=== PATIENT | female | born 1950 | race Caucasian/White ===

== ENCOUNTER 2016-06-24 11:07 | Observation (INO) | payer OTHER ==
[2016-06-24 11:14] VITALS: BMI 21.6
--- NOTE | 2016-06-24 11:23 | PDOC ---
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 The patient reports feeling fine waking up today. She reports later this morning suddenly feeling a rapid palpitations , lightheadedness, and a chest pressure that lasted a couple of minutes (less than 15 min). During this episodes she reports alerting EMS. As per EMS the patient had a HR of 208-215 in the upon arrival on scene. EMS reports giving her 4 baby aspirin while in the field. She also has chief complaints of dizziness and a headache and mild left facial tingling that occurred after her palpitation episode. She reports hvaing a juan MRI 2 weeks ago for similar symtoms that she gets intermittently. Pt denies any recent diarrhea, melena, bpr. She denies chest pain. She denies fever and chills She denies nausea, vomit, diarrhea and constipation. She denies dysuria, frequency, urgency and hematuria. Allergies: NKDA Social history: Nonsmoker. CARDIO: Dr. Marion Flynn PCP: (Torin Jacinto) Past History <Torin Jacinto - Last Filed: 06/24/16 12:44> - Past Medical History Cancer: (hx of colon) Cardiac Disorders: Yes (AFIB.) HTN: Yes Hypercholesterolemia: Yes Other medical history: MIGRAINES. - Surgical History Lung Surgery: Yes (lung resection) - Psycho/Social/Smoking Cessation Hx Anxiety: No Suicidal Ideation: No Smoking History: Former smoker Have you smoked in the past 12 months: No Information on smoking cessation initiated: No Hx Alcohol Use: No Drug/Substance Use Hx: No Substance Use Type: None <Mir Rudd - Last Filed: 06/24/16 13:17> - Past Medical History Allergies/Adverse Reactions: Allergies Allergy/AdvReac Type Severity Reaction Status Date / Time pseudoephedrine HCl Allergy Intermediate palpitaiton Verified 06/24/16 11:10 [From Amanda] s Home Medications: Ambulatory Orders Aspirin [ASA -] 81 mg PO DAILY 08/04/14 Atorvastatin Ca [Lipitor] 80 mg PO HS 08/04/14 Divalproex [Depakote -] 250 mg PO BID 08/04/14 Losartan Potassium [Cozaar -] 50 mg PO DAILY #30 tablet 04/15/16 Review of Systems - Review of Systems Able to Perform ROS?: Yes <Torin Jacinto - Last Filed: 06/24/16 12:44> <Mir Rudd - Last Filed: 06/24/16 13:17> - Review of Systems Comments:: 06/24/16 12:09 CONSTITUTIONAL: No reported: Fever, Chills, Diaphoresis, Generalized Weakness, Malaise, Loss of Appetite HEENT: No reported: Rhinorrhea, Nasal Congestion, Throat Pain, Throat Swelling, Difficulty Swallowing, Mouth Swelling, Ear Pain, Eye Pain, Visual Changes CARDIOVASCULAR: Reported: Chest pressure, Syncope, Palpitations, Lightheadedness No reported: Peripheral Edema RESPIRATORY: No reported: Cough, Shortness of Breath, SOB with Exertion, Orthopnea, Wheezing , Stridor, Hemoptysis GASTROINTESTINAL: No reported: Abdominal pain, Abdominal Distension, Nausea, Vomiting, Diarrhea, Constipation, Melena, Hematochezia GENITOURINARY: No reported: Dysuria, Frequency, Urgency, Hesitancy, Flank Pain, Genital Pain MUSCULOSKELETAL: No reported: Myalgia, Arthralgia, Joint Swelling, Back pain, Neck Pain SKIN: No reported: Rash, Itching, Pallor HEMEATOLOGIC/IMMUNOLOGIC: No reported: Easy Bleeding, Easy Bruising, Lymphadenopathy, Frequent infections ENDOCRINE: No reported: Unexplained Weight Gain, Unexplained Weight Loss, Heat Intolerance , Cold Intolerance NEUROLOGIC: Reported: headache. No reported:, Focal Weakness, Paresthesias, Vertigo, Lightheadedness, Unsteady Gait, Seizure, Mental Status Changes, Incontinence PSYCHIATRIC: No reported: Anxiety, Depression (Torin Jacinto) *Physical Exam <Torin Jacinto - Last Filed: 06/24/16 12:44> <Mir Rudd - Last Filed: 06/24/16 13:17> - Vital Signs Last Vital Signs Temp Pulse Resp BP Pulse Ox 98 F 85 15 148/96 99 06/24/16 11:10 06/24/16 13:07 06/24/16 13:07 06/24/16 13:07 06/24/16 13:07 - Physical Exam Comments: 06/24/16 12:09 GENERAL: The patient is awake, alert, and fully oriented, Nontoxic - in no acute distress. HEAD: Normocephalic, atraumatic. EYES: extraocular movements intact, sclera anicteric, conjunctiva clear. ENT: Normal voice, Moist mucous membranes. NECK: Normal range of motion, supple LUNGS: Breath sounds equal, clear to auscultation bilaterally. No wheezes, no rhonchi, no rales. HEART: slightly tachcyardic, regular, no m/r/g ABDOMEN: Soft, nontender, normoactive bowel sounds. No guarding, no rebound.No CVA tenderness EXTREMITIES: Normal range of motion, no edema. No clubbing or cyanosis. No cords , erythema, or tenderness. NEUROLOGICAL: No facial asymmetry, Normal speech. PSYCH: Normal mood, normal affect. SKIN: Warm, Dry, normal turgor. (Torin Jacinto) Heart Score/ECG Review <Torin Jacinto - Last Filed: 06/24/16 12:44> <Mir Rudd - Last Filed: 06/24/16 13:17> - ECG Impressions Comment:: 06/24/16 13:16 Twelve-lead EKG was performed and reviewed by me. There is normal sinus rhythm with a rate of 110 There is normal R wave progression ST depressions - suspect secondary to demand ischemia (Mir Rudd) ED Treatment Course - LABORATORY CBC & Chemistry Diagram: 06/24/16 11:18 06/24/16 11:18 <Torin Jacinto - Last Filed: 06/24/16 12:44> - LABORATORY CBC & Chemistry Diagram: 06/24/16 11:18 06/24/16 11:18 <Mir Rudd - Last Filed: 06/24/16 13:17> - ADDITIONAL ORDERS Additional order review: Laboratory Results 06/24/16 06/24/16 06/24/16 11:18 11:18 11:18 INR 0.93 Sodium 142 Potassium 3.8 Chloride 106 Carbon Dioxide 23 Anion Gap 13 BUN 19 H Creatinine 0.8 Creat Clearance w eGFR > 60 Random Glucose 92 Calcium 9.0 Magnesium 1.8 Total Bilirubin 0.3 D AST 19 D ALT 33 Alkaline Phosphatase 93 Creatine Kinase 64 Troponin I < 0.02 Total Protein 7.6 Albumin 4.0 TSH 3.35 D Blood Type O POSITIVE Antibody Screen Negative 06/24/16 11:18 RBC 5.25 H MCV 79.9 L MCHC 32.4 RDW 15.2 MPV 8.7 Neutrophils % 31.2 L Lymphocytes % 52.6 H Monocytes % 13.8 H Eosinophils % 2.0 Basophils % 0.4 - RADIOLOGY Radiology Studies Ordered: Category Date Time Status HEAD CT WITHOUT CONTRAST [CT] Stat CT Scan 06/24/16 11:18 Completed CHEST X-RAY PORTABLE* [RAD] Stat Radiology 06/24/16 11:18 Completed Radiograph Interpretation: 06/24/16 12:[address] W/O CONTRAST impressions reported by : No evidence of acute intracranial hemorrhage, edema, midline shift, mass effect , or skull fracture. No CT evidence of acute territorial infarction. 06/24/16 12:19 CHEST X-RAY impressions reported by : Shallow inspiration. Soft tissues of the chest projecting over the left lower lung zone. Pulmonary consolidation is noted in the left lower lung zone obscuring the left heart border. Clinical correlation. PA view recommended. (Torin Jacinto) Medical Decision Making <Torin Jacinto - Last Filed: 06/24/16 12:44> <Mir Rudd - Last Filed: 06/24/16 13:17> - Medical Decision Making 06/24/16 12:[address]Tina Sanford awaiting call back. Call made to Dr.Sara Flynn, case discussed. 06/24/16 12:[address]Tina Sanford, awaiting call back. 06/24/16 12:[address]Tina Sanford, case discussed. (Torin Jacinto) 06/24/16 11:23 66 y of colon ca, ?afib (on dilt but not on blood thinners), htn, hl, migraine headaches presents with sudden onset of palpitations starting while she was cleaning associated with mild cp, was noted to be in the 200s by EMS, when she was being trasnported, it appeared to have broken spontaneously. suspect SVT based on appearance of rythmi strip NSR, ST depressions on ekg, suspect due to demand pt placed oncardiac monitor labs sent will r/o anemia, acs, thyroid dysfunction will continue to momitior and will d/w dr. Styles and PMD anticipate admission/obs for monitoring A portion of this note was documented by scribe services under my direction. I have reviewed the details of the note, within reason, and agree with the documentation with the following case summary and management plan written by me 06/24/16 12:25 labs reviewed - unremarkable will admit for furether managment ct head negative will also notify dr. lu 06/24/16 12:46 case d/w dr. alves and dr. lu agreed with admission will place in telemetry for observation Case discussed in detail with admitting physician including history, physical exam and ancillary studies. Admitting physician has assumed care for the patient, will follow all pending diagnostics and will complete the evaluation and treatment. (Mir Rudd) *DC/Admit/Observation/Transfer <Torin Jacinto - Last Filed: 06/24/16 12:44> - Discharge Dispostion Admit: Yes <Mir Rudd - Last Filed: 06/24/16 13:17> Diagnosis at time of Disposition: Tachycardia, SVT (supraventricular tachycardia) - Discharge Dispostion Decision to Admit order Date/Time: Decision to Admit Order Category Date Time Status Decision to Admit to Hospital Routine Phy Order 06/24/16 12:49 Ordered - Referrals Referrals: Enrique Landers MD [Primary Care Provider] - - Attestations Scribe Attestion: 06/24/16 12:09 Documentation prepared by Torin Jacinto, acting as medical records coder for Mir Rudd MD. (Torin Jacinto)
[2016-06-24 11:48] LABS: BASOPHIL 0.4 % (0-2.0); MCH 25.9 pg (25.7-33.7); MCHC 32.4 g/dl (32.0-36.0); MEAN CELL VOLUME 79.9 fl (80-96); MEAN PLT VOLUME 8.7 fl (7.5-11.1); NEUTROPHILS 31.2 % (42.8-82.8); PLATELET COUNT 213 K/MM3 (134-434); RDW 15.2 % (11.6-15.6); WHITE BLOOD COUNT 6.4 K/mm3 (4.0-10.0)
[2016-06-24 12:08] LABS: INR 0.93 (0.82-1.09); PROTHROMBIN TIME (PATIENT) 10.2 SEC (9.98-11.88)
[2016-06-24 12:09] LABS: ANION GAP 13 (8-16); BILIRUBIN,TOTAL 0.3 mg/dL (0.2-1.0); CO2 23 mmol/L (21-32); CREATININE 0.8 mg/dL (0.55-1.02); GLUCOSE,RANDOM 92 mg/dL (74-106); MAGNESIUM 1.8 mg/dL (1.8-2.4); SGOT/AST 19 U/L (15-37); SGPT/ALT 33 U/L (12-78); TOT PROT 7.6 g/dl (6.4-8.2)
[2016-06-24 12:17] LABS: ALK PHOS 93 U/L (45-117); THYROID STIMULATING HORMONE 3.35 uIU/ml (0.358-3.74); TROPONIN I < 0.02 ng/ml (0.00-0.05)
--- NOTE | 2016-06-24 13:58 | HP ---
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 The patient reports feeling fine waking up today. She reports later this morning suddenly feeling a rapid palpitations , lightheadedness, and a chest pressure that lasted a couple of minutes (less than 15 min). During this episodes she reports alerting EMS. As per EMS the patient had a HR of 208-215 in the upon arrival on scene. EMS reports giving her 4 baby aspirin while in the field. She also has chief complaints of dizziness and a headache and mild left facial tingling that occurred after her palpitation episode. She reports having a brain MRI 2 weeks ago for similar symptoms that she gets intermittently. Pt denies any recent diarrhea, melena, bpr. She denies chest pain. She denies fever and chills She denies nausea, vomit, diarrhea and constipation. She denies dysuria, frequency, urgency and hematuria. PT seen by me in ER Known to me from previous admissions. Pt was found to be in SVT but converted to sinus on her own Currently denies SOB, chest pain , palpitations and dizziness. Episode of palpitations lasted till EMS arrived and was given ASA only. History Source: Patient Limitations to Obtaining History: No Limitations - Past Medical History Cardiovascular: Yes: HTN, Hyperlipdemia Gastrointestinal: Yes: Other (Lung AV malformation with lobectomy LLL, right thrombectomy and coil) Endocrine: Yes: Hypothyroidism - Smoking History Smoking history: Former smoker Have you smoked in the past 12 months: No - Alcohol/Substance Use Hx Alcohol Use: No Home Medications - Allergies Allergies/Adverse Reactions: Allergies Allergy/AdvReac Type Severity Reaction Status Date / Time pseudoephedrine HCl Allergy Intermediate palpitaiton Verified 06/24/16 11:10 [From Amanda] s - Home Medications Home Medications: Ambulatory Orders RX: Aspirin [ASA -] 81 mg PO DAILY 08/04/14 RX: Atorvastatin Ca [Lipitor] 80 mg PO HS 08/04/14 RX: Divalproex [Depakote -] 250 mg PO BID 08/04/14 RX: Losartan Potassium [Cozaar -] 50 mg PO DAILY #30 tablet 04/15/16 Calcium Carbonate/Vitamin D3 [Calcium 600-Vit D3 400 Tablet] 1 each PO DAILY 09/05 Cyanocobalamin (Vitamin B-12) [Vitamin B12] 2,500 mcg PO DAILY 06/24/16 Diltiazem Cd [Cardizem Cd -] 240 mg PO DAILY 06/24/16 Levothyroxine [Synthroid -] 25 mcg PO DAILY 06/24/16 Review of Systems - Review of Systems Constitutional: denies: Chills, Fever, Loss of Appetite, Weakness Cardiovascular: denies: Chest Pain, Palpitations Respiratory: denies: Cough, SOB Genitourinary: denies: Burning, Dysuria, Flank Pain, Frequency Physical Examination Vital Signs: Vital Signs Temperature 98 F 06/24/16 11:10 Pulse Rate 85 06/24/16 13:07 Respiratory Rate 15 06/24/16 13:07 Blood Pressure 148/96 06/24/16 13:07 O2 Sat by Pulse Oximetry (%) 99 06/24/16 13:07 Constitutional: Yes: No Distress, Calm Cardiovascular: Yes: Regular Rate and Rhythm Respiratory: Yes: CTA Bilaterally Gastrointestinal: Yes: Normal Bowel Sounds, Soft. No: Distention, Tenderness Edema: No Neurological: Yes: WNL ...Motor Strength: WNL Psychiatric: Yes: Alert, Oriented Labs: Laboratory Last Values WBC 6.4 K/mm3 (4.0-10.0) D 06/24/16 11:18 RBC 5.25 M/mm3 (3.60-5.2) H 06/24/16 11:18 Hgb 13.6 GM/dL (10.7-15.3) 06/24/16 11:18 Hct 41.9 % (32.4-45.2) 06/24/16 11:18 MCV 79.9 fl (80-96) L 06/24/16 11:18 MCHC 32.4 g/dl (32.0-36.0) 06/24/16 11:18 RDW 15.2 % (11.6-15.6) 06/24/16 11:18 Plt Count 213 K/MM3 (134-434) 06/24/16 11:18 MPV 8.7 fl (7.5-11.1) 06/24/16 11:18 Neutrophils % 31.2 % (42.8-82.8) L 06/24/16 11:18 Lymphocytes % 52.6 % (8-40) H 06/24/16 11:18 Monocytes % 13.8 % (3.8-10.2) H 06/24/16 11:18 Eosinophils % 2.0 % (0-4.5) 06/24/16 11:18 Basophils % 0.4 % (0-2.0) 06/24/16 11:18 INR 0.93 (0.82-1.09) 06/24/16 11:18 Sodium 142 mmol/L (136-145) 06/24/16 11:18 Potassium 3.8 mmol/L (3.5-5.1) 06/24/16 11:18 Chloride 106 mmol/L (98-107) 06/24/16 11:18 Carbon Dioxide 23 mmol/L (21-32) 06/24/16 11:18 Anion Gap 13 (8-16) 06/24/16 11:18 BUN 19 mg/dL (7-18) H 06/24/16 11:18 Creatinine 0.8 mg/dL (0.55-1.02) 06/24/16 11:18 Creat Clearance w eGFR > 60 (>60) 06/24/16 11:18 Random Glucose 92 mg/dL (74-106) 06/24/16 11:18 Calcium 9.0 mg/dL (8.5-10.1) 06/24/16 11:18 Magnesium 1.8 mg/dL (1.8-2.4) 06/24/16 11:18 Total Bilirubin 0.3 mg/dL (0.2-1.0) D 06/24/16 11:18 AST 19 U/L (15-37) D 06/24/16 11:18 ALT 33 U/L (12-78) 06/24/16 11:18 Alkaline Phosphatase 93 U/L (45-117) 06/24/16 11:18 Creatine Kinase 64 IU/L (26-192) 06/24/16 11:18 Troponin I < 0.02 ng/ml (0.00-0.05) 06/24/16 11:18 Total Protein 7.6 g/dl (6.4-8.2) 06/24/16 11:18 Albumin 4.0 g/dl (3.4-5.0) 06/24/16 11:18 TSH 3.35 uIU/ml (0.358-3.74) D 06/24/16 11:18 Urine Color Colorless 06/24/16 13:40 Urine Appearance Clear 06/24/16 13:40 Urine pH 8.0 (5.0-8.0) D 06/24/16 13:40 Ur Specific [place] 1.004 (1.001-1.035) 06/24/16 13:40 Urine Protein Negative (NEGATIVE) 06/24/16 13:40 Urine Glucose (UA) Negative (NEGATIVE) 06/24/16 13:40 Urine Ketones Negative (NEGATIVE) 06/24/16 13:40 Urine Blood Negative (NEGATIVE) 06/24/16 13:40 Urine Nitrite Negative (NEGATIVE) 06/24/16 13:40 Urine Bilirubin Negative (NEGATIVE) 06/24/16 13:40 Urine Urobilinogen Negative E.U./dl (0.2-1.0) 06/24/16 13:40 Ur Leukocyte Esterase Negative (NEGATIVE) 06/24/16 13:40 Blood Type O POSITIVE 06/24/16 11:18 Antibody Screen Negative 06/24/16 11:18 Imaging - Results Chest X-ray: Image Reviewed (left lower lobe obscured) EKG: Image Reviewed Problem List - Problems (1) SVT (supraventricular tachycardia) Code(s): I47.1 - SUPRAVENTRICULAR TACHYCARDIA (2) Tachycardia Code(s): R00.0 - TACHYCARDIA, UNSPECIFIED (3) Chest pain Code(s): R07.9 - CHEST PAIN, UNSPECIFIED Qualifiers: Chest pain type: precordial chest pain Qualified Code(s): R07.2 - Precordial pain Assessment/Plan PLAN Admit for telemetry monitoring check Thyroid function test Cardiology shivam currently has left sided facial numbness and pain in left arm-- she had this before-- MRI brain negative and today's CT head negative pt is afebrile, O2 sat 99-100% on RA -- CXR does not appear like pneumonia, prob from previous h/o left lobectomy UA normal check electrolytes continue with Diltiazem , ASA serial cardiac enzymes Echo in AM
[2016-06-24 14:04] LABS: URINE APPEARANCE CLEAR; URINE BILIRUBIN NEGATIVE (NEGATIVE); URINE BLOOD NEGATIVE (NEGATIVE); URINE COLOR COLORLESS; URINE GLUCOSE (UA) NEGATIVE (NEGATIVE); URINE KETONE NEGATIVE (NEGATIVE); URINE LEUK ESTERASE NEGATIVE (NEGATIVE); URINE NITRITE NEGATIVE (NEGATIVE); URINE PROTEIN NEGATIVE (NEGATIVE); URINE UROBILINOGEN NEGATIVE E.U./dl (0.2-1.0)
--- NOTE | 2016-06-24 15:32 | CONSULT ---
Cardiology Consult (text) - Consultation Consultation Note: CC: palps/SVT 65 yrs with h/o HTN, Hyperlipdemia, hypothyroid, osler-calderon with lung AV malformations s/p resection on left and coil embolization on right. Also with unknown arryhthmias about 20 years ago who presents with palpitations and found to have SVT by EMS. Patient states she felt unwell this morning with headache (has chronic migraines and intermittent paresthesias, recent MRI unremarkable, but MRA still not done-has insurance approval, but not scheduled). Subsequently developed palpitations radiating into her throat with associated sob, chest pressure. Had similar symptoms one month ago, but not as severe and self-limited. Symptoms persisted and called ems. Per report, HR was 200's. Converted to SR on her own. Strips not available, but picture was taken of monitor which I was able to see and consistent with SVT. No orthopnea, pnd, le edema, claudication or bleeding. No recent illness, f/c/s, n/v/d, poor po intake, rashes, visual disturbances. + chronic intermittent dry cough. Past Medical History/surg hx: per hpi. Social hx: former smoker in her 20's, one beer/day, no illicits. fam hx: nc ros: per hpi Allergies/Adverse Reactions: Allergies Allergy/AdvReac Type Severity Reaction Status Date / Time No Known Allergies Allergy Verified 04/14/16 13:48 Ambulatory Orders Aspirin [ASA -] 81 mg PO DAILY 08/04/14 Atorvastatin Ca [Lipitor] 80 mg PO HS 08/04/14 Divalproex [Depakote -] 250 mg PO BID 08/04/14 Losartan Potassium [Cozaar -] 50 mg PO DAILY #30 tablet 04/15/16 Calcium Carbonate/Vitamin D3 [Calcium 600-Vit D3 400 Tablet] 1 each PO DAILY 09/05 Cyanocobalamin (Vitamin B-12) [Vitamin B12] 2,500 mcg PO DAILY 06/24/16 Diltiazem Cd [Cardizem Cd -] 240 mg PO DAILY 06/24/16 Levothyroxine [Synthroid -] 25 mcg PO DAILY 06/24/16 Current Medications Aspirin (Asa -) 81 mg PO DAILY [facility] Atorvastatin Calcium (Lipitor -) 80 mg PO HS [facility] Diltiazem HCl (Cardizem Cd -) 240 mg PO DAILY [facility] Divalproex Sodium (Depakote -) 250 mg PO BID [facility] Levothyroxine Sodium (Synthroid -) 25 mcg PO DAILY@0700 [facility] Losartan Potassium (Cozaar -) 50 mg PO DAILY [facility] Vital Signs - 24 hr 06/24/16 06/24/16 06/24/16 11:10 12:57 13:07 Temperature 98 F Pulse Rate 106 H 85 Pulse Rate [ 85 85 Left] Respiratory 22 16 15 Rate Blood Pressure 165/111 Blood Pressure 148/96 148/96 [Arm] O2 Sat by Pulse 100 99 99 Oximetry (%) Intake & Output 06/22/16 06/23/16 06/24/16 06/25/16 07:59 07:59 07:59 07:59 Weight 130 lb NAD, calm JVD flat, neck supple bibasilar rales, nl effort RRR nl s1, s2 no m/r/g + bs soft nt nd ext without e/c/c + dp/pt aao x3 no jaundice, diaphoresis no carotid bruits. CBC, BMP 06/24/16 11:18 06/24/16 11:18 Laboratory Tests 06/24/16 06/24/16 11:18 11:18 INR 0.93 Magnesium 1.8 Total Bilirubin 0.3 D AST 19 D ALT 33 Alkaline Phosphatase 93 Creatine Kinase 64 Troponin I < 0.02 Total Protein 7.6 Albumin 4.0 TSH 3.35 D EKG: Sinus tachycardia, 110 bpm. Nl asxis/intervals. minimal STD V3-V5. tele: Sinus tach, SR CXR: vascular coils in R suprahilar region, pulmonary consolidation in LLL obscuring left heart border. head CT negative for acute pathology. stress echo 03/2016: 1 min 38 sec. 104% PHR. Non-diagnostic EKG changes. Nl Ef. No inducible ischemia. 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 Also with unknown arryhthmias about 20 years ago who presents with palpitations and found to have SVT by EMS. Palps/CP/EKG ab - Likely episode of SVT with spontaneous conversion. Con't telemetry monitoring. - Echo to evaluate for structural abnormalities. - CXR shows obscuring of left heart border . Infiltrate vs. hemorrhage from AVM ?, patient also at risk for thromboembolism. Would further evaluate with Chest CT (PE protocol). BNP. - EKG with STD. Con't MILO. Recent stress test negative for ischemia in March. HTN - Currently controlled on home regimen. Con't dilt, losartan. - Con't ASA HL - con't atorvastatin. Migraine/paresthesias. - May be related to osler calderon rendu. Had plan for brain MRA to look for brain AV malformations, but difficulty getting insurance approval. If telemetry shows any signs of afib, would recommend brain MRA prior to anticoagulation
[2016-06-24] MEDS ORDERED: ATORVASTATIN CA 80 MG TABLET (FP) PO SCH (22:00)
[2016-06-24] MEDS: DIVALPROEX SODIUM 250 MG TABLET E.C. (FP) PO SCH (23:26)
[2016-06-25] MEDS ORDERED: LEVOTHYROXINE NA 25 MCG TABLET (FP) PO SCH (07:00)
[2016-06-25 08:19] LABS: BASOPHIL 0.4 % (0-2.0); EOSINOPHIL 1.4 % (0-4.5); MCH 26.2 pg (25.7-33.7); MCHC 32.6 g/dl (32.0-36.0); MEAN CELL VOLUME 80.4 fl (80-96); MEAN PLT VOLUME 8.9 fl (7.5-11.1); NEUTROPHILS 47.9 % (42.8-82.8); PLATELET COUNT 200 K/MM3 (134-434); RDW 15.3 % (11.6-15.6); WHITE BLOOD COUNT 6.1 K/mm3 (4.0-10.0)
[2016-06-25 09:02] LABS: ALBUMIN 3.5 g/dl (3.4-5.0); ALK PHOS 81 U/L (45-117); ANION GAP 10 (8-16); BILIRUBIN,TOTAL 0.3 mg/dL (0.2-1.0); CALCIUM 8.6 mg/dL (8.5-10.1); CO2 25 mmol/L (21-32); CREATININE 0.7 mg/dL (0.55-1.02); FREE T4 1.14 ng/dl (0.76-1.46); GLUCOSE,RANDOM 75 mg/dL (74-106); MAGNESIUM 1.9 mg/dL (1.8-2.4); SGOT/AST 19 U/L (15-37); SGPT/ALT 27 U/L (12-78); THYROID STIMULATING HORMONE 1.82 uIU/ml (0.358-3.74); TOT PROT 6.6 g/dl (6.4-8.2)
--- NOTE | 2016-06-25 09:56 | PN ---
Progress Note, Physician Chief Complaint: no further palpitations no chest pain or dizziness - Current Medication List Current Medications: Active Medications Aspirin (Asa -) 81 mg PO DAILY [facility] Atorvastatin Calcium (Lipitor -) 80 mg PO HS [facility] Last Admin: 06/24/16 23:25 Dose: 80 mg Diltiazem HCl (Cardizem Cd -) 240 mg PO DAILY [facility] Divalproex Sodium (Depakote -) 250 mg PO BID [facility] Last Admin: 06/24/16 23:26 Dose: 250 mg Levothyroxine Sodium (Synthroid -) 25 mcg PO DAILY@0700 [facility] Last Admin: 06/25/16 06:06 Dose: 25 mcg Losartan Potassium (Cozaar -) 50 mg PO DAILY [facility] - Objective Vital Signs: Vital Signs Temperature 97.9 F 06/25/16 06:00 Pulse Rate 73 06/25/16 06:00 Respiratory Rate 18 06/25/16 06:00 Blood Pressure 148/86 06/25/16 06:00 O2 Sat by Pulse Oximetry (%) 97 06/24/16 22:33 Constitutional: Yes: No Distress, Calm Cardiovascular: Yes: Regular Rate and Rhythm Respiratory: Yes: CTA Bilaterally Gastrointestinal: Yes: Normal Bowel Sounds, Soft. No: Distention, Tenderness Edema: No Labs: CBC, BMP 06/25/16 06:00 06/25/16 06:00 INR, PTT INR 0.93 (0.82-1.09) 06/24/16 11:18 Problem List - Problems (1) SVT (supraventricular tachycardia) Code(s): I47.1 - SUPRAVENTRICULAR TACHYCARDIA (2) Tachycardia Code(s): R00.0 - TACHYCARDIA, UNSPECIFIED (3) Chest pain Code(s): R07.9 - CHEST PAIN, UNSPECIFIED Qualifiers: Chest pain type: precordial chest pain Qualified Code(s): R07.2 - Precordial pain Assessment/Plan PLAN Thyroid function test normal Cardiology shivam givens currently has left sided facial numbness and pain in left arm-- she had this before-- MRI brain negative and today's CT head negative pt is afebrile, O2 sat 99-100% on RA -- CXR does not appear like pneumonia, prob from previous h/o left lobectomy UA normal Echo pending CT chest same as 2010 continue with Diltiazem , ASA serial cardiac enzymes
[2016-06-25] MEDS ORDERED: PT OWN MED DRAWER 7, Y5N ONE (10:00)
[2016-06-25] MEDS ORDERED: ASPIRIN 81 MG CHEWABLE TABLETS PO SCH (10:00)
[2016-06-25] MEDS ORDERED: LOSARTAN POTASSIUM 50 MG TABLET (FP) PO SCH (10:00)
[2016-06-25] MEDS ORDERED: ENOXAPARIN NA (PORCINE) 40 MG/0.4 ML DISP.SYRIN SQ SCH (10:00)
--- NOTE | 2016-06-25 11:04 | EKG ---
Test Reason : Blood Pressure : / mmHG Vent. Rate : 110 BPM Atrial Rate : 110 BPM P-R Int : 166 ms QRS Dur : 072 ms QT Int : 314 ms P-R-T Axes : 049 -08 019 degrees QTc Int : [address] DEPRESSION, CONSIDER SUBENDOCARDIAL INJURY OR DIGITALIS EFFECT ABNORMAL ECG WHEN COMPARED WITH ECG OF 14-APR-2016 19:35, CRITERIA FOR SEPTAL INFARCT ARE NO LONGER PRESENT ST NOW DEPRESSED IN INFERIOR LEADS ST NOW DEPRESSED IN ANTERIOR LEADS NONSPECIFIC T WAVE ABNORMALITY, WORSE IN INFERIOR LEADS Confirmed by MARCELLUS DE LUNA, YAA ([id number]) on 06/25/2016 11:04:23 AM Referred By: Confirmed By:YAA GERMAIN MD
[2016-06-25] MEDS: DIVALPROEX SODIUM 250 MG TABLET E.C. (FP) PO SCH (11:37)
--- NOTE | 2016-06-25 11:49 | PN ---
Progress Note (short form) - Note Progress Note: s: no cp sob palps dizzy o: Vital Signs Period Temp Pulse Resp BP Sys/Alex Pulse Ox Last 24 Hr 97.5 F-98.1 F 66-85 15-18 134-155/79-96 97-99 NAD, calm JVD flat, neck supple cta bl, nl effort RRR nl s1, s2 no m/r/g + bs soft nt nd ext without e/c/c aao x3 no jaundice, diaphoresis Current Medications Generic Name Dose Route Start Last Admin Trade Name Mattiq PRN Reason Stop Dose Admin Aspirin 81 mg 06/25/16 10:00 06/25/16 10:01 Asa - PO 81 mg DAILY CARLA Administration Atorvastatin Calcium 80 mg 06/24/16 22:00 06/24/16 23:25 Lipitor - PO 80 mg HS CARLA Administration Diltiazem HCl 240 mg 06/25/16 10:00 06/25/16 10:01 Cardizem Cd - PO 240 mg DAILY CARLA Administration Divalproex Sodium 250 mg 06/24/16 22:00 06/25/16 11:37 Depakote - PO 250 mg BID CARLA Administration Levothyroxine Sodium 25 mcg 06/25/16 07:00 06/25/16 06:06 Synthroid - PO 25 mcg DAILY@0700 CARLA Administration Losartan Potassium 50 mg 06/25/16 10:00 06/25/16 10:01 Cozaar - PO 50 mg DAILY CARLA Administration CBC, BMP 06/25/16 06:00 06/25/16 06:00 EKG: Sinus tachycardia, 110 bpm. Nl asxis/intervals. minimal STD V3-V5. tele: SR, no svt CXR: vascular coils in R suprahilar region, pulmonary consolidation in LLL obscuring left heart border. head CT negative for acute pathology. stress echo 03/2016: 1 min 38 sec. 104% PHR. Non-diagnostic EKG changes. Nl Ef. No inducible ischemia. 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 Also with unknown arryhthmias about 20 years ago who presents with palpitations and found to have SVT by EMS. Palps/CP/EKG ab - Likely episode of SVT with spontaneous conversion had caused her symptoms, no recurrence on tele here - Echo pending to evaluate for structural abnormalities. - cta chest w/o any acute findings - no signs acs - cont dilt for svt prevention HTN - Currently controlled on home regimen. Con't dilt, losartan. - Con't ASA HL - con't atorvastatin. Migraine/paresthesias. - May be related to osler calderon rendu. Had plan for brain MRA to look for brain AV malformations, but difficulty getting insurance approval. If telemetry shows any signs of afib, would recommend brain MRA prior to anticoagulation if echo benign then ok for dc today from cardiac pov, will f/u with dr wallace
[2016-06-25 13:47] VITALS: BP 128/89; PULSE 73; TEMP 97.7
--- NOTE | 2016-06-25 13:48 | DS ---
Physical Examination Vital Signs: Vital Signs Temperature 97.5 F L 06/25/16 10:00 Pulse Rate 66 06/25/16 10:00 Respiratory Rate 18 06/25/16 10:00 Blood Pressure 136/84 06/25/16 10:00 O2 Sat by Pulse Oximetry (%) 97 06/25/16 09:00 Constitutional: Yes: No Distress, Calm Cardiovascular: Yes: Regular Rate and Rhythm Respiratory: Yes: CTA Bilaterally Gastrointestinal: Yes: Normal Bowel Sounds, Soft. No: Distention, Tenderness Edema: No Labs: CBC, BMP 06/25/16 06:00 06/25/16 06:00 Discharge Summary Reason For Visit: TACHYCARDIA,SVT Current Active Problems SVT (supraventricular tachycardia) (Acute) Tachycardia (Acute) Hospital Course: Admitted for SVT Seen by Cardiology Feeling well echo normal and CT chest is negative- same as 2010 Pt is stable for dc home Condition: Improved - Instructions Referrals: Marion Flynn MD [Staff Physician] - 2 Weeks Enrique Landers MD [Primary Care Provider] - Disposition: HOME - Home Medications Comprehensive Discharge Medication List: Ambulatory Orders Aspirin [ASA -] 81 mg PO DAILY 08/04/14 Atorvastatin Ca [Lipitor] 80 mg PO HS 08/04/14 Divalproex [Depakote -] 250 mg PO BID 08/04/14 Losartan Potassium [Cozaar -] 50 mg PO DAILY #30 tablet 04/15/16 Calcium Carbonate/Vitamin D3 [Calcium 600-Vit D3 400 Tablet] 1 each PO DAILY 09/05 Cyanocobalamin (Vitamin B-12) [Vitamin B12] 2,500 mcg PO DAILY 06/24/16 Diltiazem Cd [Cardizem Cd -] 240 mg PO DAILY 06/24/16 Levothyroxine [Synthroid -] 25 mcg PO DAILY 06/24/16
== END 2016-06-25 15:29 | disposition home or self-care (01) ==
LOC: JER 11:07 → JERBED 12:59 → J4S 21:13
PROVIDERS: ADMIT Internal Medicine; ATTEND Internal Medicine
DX: I47.1 Supraventricular tachycardia (principal); I10 Essential (primary) hypertension; E03.9 Hypothyroidism, unspecified; I48.91 Unspecified atrial fibrillation; Z87.891 Personal history of nicotine dependence; G43.909 Migraine, unspecified, not intractable, without status migrainosus; R20.9 Unspecified disturbances of skin sensation
CPT/HCPCS: 36415; 70450-TC; 71010-TC; 71260-TC; 80053; 81003; 82550; 83735; 84439; 84443; 84484; 85025; 85610; 86850; 86900; 86901; 93005; 93010; 93306-TC; 99285-25; G0378

== ENCOUNTER 2017-09-03 10:58 | Emergency (ER) | payer OTHER ==
[2017-09-03 11:02] VITALS: BP 163/69; PULSE 74; TEMP 97.9; BMI 24.9
[2017-09-03] MEDS ORDERED: IBUPROFEN 400 MG TABLET (FP) PO ONE ×2 (12:10→12:13)
[2017-09-03] MEDS ORDERED: DIPHTH,PERTUSS(ACELL),TET 0.5 ML DISP.SYRIN IM ONE (12:10)
--- NOTE | 2017-09-03 12:15 | PDOC ---
History of Present Illness - General Chief Complaint: Injury Stated Complaint: RT FINGER LACERATION Time Seen by Provider: 09/03/17 11:36 History Source: Patient Exam Limitations: No Limitations - History of Present Illness Initial Comments: 09/03/17 12:10 Was washing glasses in this incident today when glass broke causing a laceration to the MCP of right second digit. Range of motion, states bled quite a bit but patient is taking baby aspirin daily Occurred: reports: just prior to arrival, this morning Severity: reports: mild, moderate Pain Location: reports: upper extremity (right index finger) Associated Symptoms (Fall): denies symptoms Past History - Travel Traveled outside of the country in the last 30 days: No Close contact w/someone who was outside of country & ill: No - Past Medical History Allergies/Adverse Reactions: Allergies Allergy/AdvReac Type Severity Reaction Status Date / Time pseudoephedrine HCl Allergy Intermediate palpitaiton Verified 09/03/17 11:02 [From [facility]] s Home Medications: Ambulatory Orders Aspirin [ASA -] 81 mg PO DAILY 08/04/14 Atorvastatin Ca [Lipitor] 80 mg PO HS 08/04/14 Divalproex [Depakote -] 250 mg PO BID 08/04/14 Losartan Potassium [Cozaar -] 50 mg PO DAILY #30 tablet 04/15/16 Calcium Carbonate/Vitamin D3 [Calcium 600-Vit D3 400 Tablet] 1 each PO DAILY 09/05 Cyanocobalamin (Vitamin B-12) [Vitamin B12] 2,500 mcg PO DAILY 06/24/16 Diltiazem Cd [Cardizem Cd -] 240 mg PO DAILY 06/24/16 Levothyroxine [Synthroid -] 25 mcg PO DAILY 06/24/16 Anemia: No Asthma: No Cancer: (hx of colon) Cardiac Disorders: Yes (AFIB.) CVA: No COPD: No CHF: No Dementia: No Diabetes: No GI Disorders: No Disorders: No HTN: Yes Hypercholesterolemia: Yes Liver Disease: No Seizures: No Thyroid Disease: Yes - Surgical History Abdominal Surgery: No Appendectomy: No Cardiac Surgery: No Cholecystectomy: No Lung Surgery: Yes (lung resection) Neurologic Surgery: No - Suicide/Smoking/Psychosocial Hx Smoking History: Never smoked Have you smoked in the past 12 months: No Information on smoking cessation initiated: No Hx Alcohol Use: No Drug/Substance Use Hx: No Substance Use Type: None Hx Substance Use Treatment: No Review of Systems - Review of Systems Able to Perform ROS?: Yes Is the patient limited Icelandic proficient: Yes Constitutional: Yes: See HPI. No: Symptoms Reported HEENTM: No: Symptoms Reported Musculoskeletal: Yes: Symptoms Reported, See HPI, Joint Pain Integumentary: Yes: Symptoms Reported, See HPI Neurological: No: Symptoms reported All Other Systems: Reviewed and Negative *Physical Exam - Vital Signs Last Vital Signs Temp Pulse Resp BP Pulse Ox 97.9 F 74 18 163/69 96 09/03/17 11:00 09/03/17 11:00 09/03/17 11:00 09/03/17 11:00 09/03/17 11:00 - Physical Exam General Appearance: Yes: Appropriately Dressed, Apparent Distress HEENT: positive: VARUN Extremity: positive: Normal Capillary Refill, Normal Range of Motion (able to flex and extend at proximal and distal phalanx) Integumentary: positive: Normal Color, Other (2 cm laceration across the dorsal aspect of right hand MCP just distal to joint. Has a small pulsatile bleed and some noted small tendon interruption although tenderness intact and flexion and extension is intact. Sensation intact distal digit.) Neurologic: positive: developmental behavioral physician II-XII NML intact, Fully Oriented, Alert, Normal Mood/ Affect Procedures - Laceration/Wound Repair Right Dorsal Finger Wound Length: to 2.5 cm Wound Explored: clean Wound's Depth, Shape: into muscle, linear Irrigated w/ Saline: Yes Betadine Prep: Yes Anesthesia: 1% Lidocaine Wound Repaired With: Sutures Suture Size/Type: 5:0 Layer Closure: No Splint Applied: Yes Progress Note - Progress Note Progress Note: Finger laceration, repaired. Will follow-up with Dr. Faye ../Diphtheria/ pertussis booster updated today *DC/Admit/Observation/Transfer Diagnosis at time of Disposition: Finger laceration Qualifiers: Encounter type: initial encounter Finger: index finger Damage to nail status: without damage Foreign body presence: unspecified Laterality: right Qualified Code(s): S61.210A - Laceration without foreign body of right index finger without damage to nail, initial encounter - Discharge Dispostion Disposition: HOME Condition at time of disposition: Stable Admit: No - Referrals Referrals: Anshul,Nunez, MD [Primary Care Provider] - - Patient Instructions Printed Discharge Instructions: DI for Laceration Repair -- Finger Additional Instructions: Rest, elevate, avoid strenuous activity or heavy lifting until sutures are removed Leave dressing on for the next 24 hours, Then may remove dressing gently and wash area with soap and water. Use splints on finger for at least one week Reapply bacitracin ointment and dressing daily for the next 5 days On day #6 keep the wound protected and cover as needed until sutures are removed allowing wound to start to dry May use Tylenol or Motrin for pain relief Suture removal in : 10 -14 Days Tetanus/diphtheria/pertussis booster was updated today - Post Discharge Activity Forms/Work/School Notes: Back to Work
== END 2017-09-03 12:32 | disposition home or self-care (01) ==
LOC: JERFT 10:58
PROC: 3E0234Z Introduction of Serum, Toxoid and Vaccine into Muscle, Percutaneous Approach (ICD-10-PCS; principal; 2017-09-03)
PROC: 0JQJ0ZZ Repair Right Hand Subcutaneous Tissue and Fascia, Open Approach (ICD-10-PCS; 2017-09-03)
DX: S61.210A Laceration without foreign body of right index finger without damage to nail, initial encounter (principal); W25.XXXA Contact with sharp glass, initial encounter; Y93.G1 Activity, food preparation and clean up; Y92.010 Kitchen of single-family (private) house as the place of occurrence of the external cause; Y99.8 Other external cause status; I10 Essential (primary) hypertension; E78.00 Pure hypercholesterolemia, unspecified; E03.9 Hypothyroidism, unspecified; I48.91 Unspecified atrial fibrillation; Z85.038 Personal history of other malignant neoplasm of large intestine
CPT/HCPCS: 90715; 99281-25

== ENCOUNTER 2018-01-05 09:41 | Observation (INO) | payer OTHER ==
--- NOTE | 2018-01-05 10:36 | PDOC ---
History of Present Illness - General Chief Complaint: Lightheaded Stated Complaint: DIZZINESS, NAUSEA Time Seen by Provider: 01/05/18 10:11 - History of Present Illness Initial Comments: 01/05/18 10:36 67 year old with history of Osler Calderon Amelia Syndrome, HTN, HLD, hypothyroidism who presents with dizziness for the past 4 days. 4 days ago she had several episodes of vomiting food. Since then she has felt dizzy, as if the room is spinning, and has had a decreased appetite. She denies any watery diarrhea but notes that her stool is soft. She has a history of motion sickness and had moderate relief with meclizine. This morning she noted worsening nausea and dizziness. noted and elevated BP measured today with a systolic of 190 at home, with her baseline at 150. She admits to mild blurriness in vision and slight headache but denies chest pain, abdominal pain ringing in the ears and weakness. PMHX: as noted in HPI SHX: colon CA resection, Tob: none Etoh: none Rec drugs: none Med:divalproex 250mg BID, Losartan 100mg daily, Levothyroxine .025mg daily, diltiazem 240mg Allergies: sudafed (tachycardia) Past History - Past Medical History Allergies/Adverse Reactions: Allergies Allergy/AdvReac Type Severity Reaction Status Date / Time pseudoephedrine HCl Allergy Intermediate palpitaiton Verified 01/05/18 09:50 [From Sudafed] s Home Medications: Ambulatory Orders Aspirin [ASA -] 81 mg PO DAILY 08/04/14 Atorvastatin Ca [Lipitor] 80 mg PO HS 08/04/14 Divalproex [Depakote -] 250 mg PO BID 08/04/14 Losartan Potassium [Cozaar -] 50 mg PO DAILY #30 tablet 04/15/16 Calcium Carbonate/Vitamin D3 [Calcium 600-Vit D3 400 Tablet] 1 each PO DAILY 09/05 Cyanocobalamin (Vitamin B-12) [Vitamin B12] 2,500 mcg PO DAILY 06/24/16 Diltiazem Cd [Cardizem Cd -] 240 mg PO DAILY 06/24/16 Levothyroxine [Synthroid -] 25 mcg PO DAILY 06/24/16 Anemia: No Asthma: No Cancer: Yes (hx of colon) Cardiac Disorders: Yes (AFIB.) CVA: No COPD: No CHF: No DVT: No Dementia: No Diabetes: No GI Disorders: No Disorders: No HTN: Yes Hypercholesterolemia: Yes Liver Disease: No Seizures: No Thyroid Disease: Yes Other medical history: osllo - calderon randu syndrome - Surgical History Abdominal Surgery: Yes (colon sx) Appendectomy: No Cardiac Surgery: No Cholecystectomy: No Lung Surgery: Yes (lung resection) Neurologic Surgery: No - Suicide/Smoking/Psychosocial Hx Smoking History: Never smoked Have you smoked in the past 12 months: No Information on smoking cessation initiated: No Hx Alcohol Use: No Drug/Substance Use Hx: No Substance Use Type: None Hx Substance Use Treatment: No Review of Systems - Review of Systems Able to Perform ROS?: Yes Is the patient limited Nepali proficient: No Constitutional: No: Chills, Diaphoresis, Fever HEENTM: Yes: Blurred Vision (for past 2 days). No: Eye Pain, Ear Pain, Nose Pain, Tinnitus Respiratory: No: Cough, Shortness of Breath Cardiac (ROS): No: Chest Pain, Chest Tightness ABD/GI: Yes: Nausea, Vomiting. No: Constipated, Diarrhea : No: Dysuria Musculoskeletal: No: Muscle Pain, Muscle Weakness, Neck Pain Neurological: Yes: Headache. No: Numbness, Tingling, Ataxia *Physical Exam - Vital Signs Last Vital Signs Temp Pulse Resp BP Pulse Ox 97.9 F 84 18 173/94 100 01/05/18 09:51 01/05/18 09:51 01/05/18 09:51 01/05/18 09:51 01/05/18 09:51 - Physical Exam Comments: 01/05/18 13:14 GENERAL: Awake, alert, and fully oriented, in no acute distress HEAD: No signs of trauma, normocephalic, atraumatic EYES: EOMI, sclera anicteric, conjunctiva clear ENT: oropharynx clear without exudates. Moist mucosa LUNGS: No distress, speaks full sentences, clear to auscultation bilaterally HEART: Regular rate and rhythm, normal S1 and S2, no murmurs, rubs or gallops, peripheral pulses normal and equal bilaterally. ABDOMEN: Soft, nontender, normoactive bowel sounds. No guarding, no rebound. No masses EXTREMITIES : Normal inspection, Normal range of motion, no edema. No clubbing or cyanosis. NEUROLOGICAL: Cranial nerves II through XII grossly intact. Normal speech, normal gait, no focal sensorimotor deficits SKIN: Warm, Dry, normal turgor, no rashes or lesions noted ED Treatment Course - LABORATORY CBC & Chemistry Diagram: 01/05/18 11:40 01/05/18 11:40 Medical Decision Making - Medical Decision Making 01/05/18 13:15 67 year old with history of Osler Calderon Amelia Syndrome, prior stroke, HTN, HLD, hypothyroidism who presents with dizziness for the past 4 days. Given the patient's history, elevated systolic BP from baseline and symptoms of nausea and dizziness must r/o CVA, also consider BPPV vs central vertigo and orthostatic hypotension. Will proceed with lab workup and imaging and consult neurology. CT head - no acute findings Neurology consulted and gave recommendations to assess for improvement after labs and zofran. Clinical suspicion for CVA still high will order MRI to definitvely r/o CVA. 01/05/18 14:[address] Sanford and she agrees to accept patient. 01/05/18 18:26 Patient anxious about MRI. 1mg Xanax PO given 01/05/18 18:34 *DC/Admit/Observation/Transfer Diagnosis at time of Disposition: CVA (cerebral vascular accident) - Discharge Dispostion Condition at time of disposition: Guarded Decision to Admit order: Yes - Referrals - Patient Instructions - Post Discharge Activity
--- NOTE | 2018-01-05 11:41 | PDOC ---
Attending Attestation - Resident Resident Name: LandonEveline rowlandie - ED Attending Attestation I have performed the following: I have examined & evaluated the patient, The case was reviewed & discussed with the resident, I agree w/resident's findings & plan, Exceptions are as noted - HPI HPI: 01/05/18 11:38 67 F with h/o Osler Perry Rendu Syndrome, HTN, HLD, hypothyroidism, prior CVA, presenting to ED with dizziness x 3 days. Pt states that 3 days ago she had sudden onset of dizziness with nausea and vomiting. She describes the dizziness as a room-spinning sensation. The dizziness has persisted, though the nausea has resolved. Pt also endorses headache. Denies F/C. Denies neck pain. Denies weakness/numbness in any extremity. Denies CP/SOB. Pt states that she currently still feeling a room-spinning sensation. - Physicial Exam PE: 01/05/18 11:40 "GENERAL: Awake, alert, and fully oriented, in no acute distress. HEAD: No signs of trauma EYES: PERRLA, EOMI, sclera anicteric, conjunctiva clear ENT: Auricles normal inspection, hearing grossly normal, nares patent, oropharynx clear without exudates. Moist mucosa NECK: Nontender, no stepoffs, Normal ROM, supple, no lymphadenopathy, JVD, or masses LUNGS: Breath sounds equal, clear to auscultation bilaterally. No wheezes, and no crackles HEART: Regular rate and rhythm, normal S1 and S2, no murmurs, rubs or gallops ABDOMEN: Soft, nontender, normoactive bowel sounds. No guarding, no rebound. No masses EXTREMITIES: Normal range of motion, no edema. No clubbing or cyanosis. No cords, erythema, or tenderness NEUROLOGICAL: Cranial nerves II through XII intact. 5/5 strength and sensation in all extremities, Normal speech, normal gait, normal cerebellar function SKIN: Warm, Dry, normal turgor, no rashes or lesions noted. " - Medical Decision Making 01/05/18 11:40 67 F with vertigo, N+V. Pt with significant risk factors for CVA, including prior CVA. Will need to r/o new infarct. - Labs - CT head - Neuro consult
[2018-01-05] MEDS ORDERED: ONDANSETRON 4 MG/2 ML VIAL IVPB ONE (11:49)
[2018-01-05 12:11] LABS: BASO % 0.4 % (0-2.0); EOS % 1.1 % (0-4.5); HEMATOCRIT 43.9 % (32.4-45.2); HEMOGLOBIN 14.2 GM/dL (10.7-15.3); LYMPH % 24.1 % (8-40); MCH 25.7 pg (25.7-33.7); MCHC 32.3 g/dl (32.0-36.0); MEAN CELL VOLUME 79.6 fl (80-96); MEAN PLT VOLUME 8.6 fl (7.5-11.1); MONO % 8.4 % (3.8-10.2); PLATELET COUNT 229 K/MM3 (134-434); RBC 5.51 M/mm3 (3.60-5.2); RDW 15.8 % (11.6-15.6); WHITE BLOOD COUNT 6.6 K/mm3 (4.0-10.0)
[2018-01-05 12:18] LABS: URINE APPEARANCE CLEAR; URINE BILIRUBIN NEGATIVE (<2.0 mg/dL); URINE COLOR STRAW; URINE GLUCOSE (UA) NEGATIVE (NEGATIVE); URINE KETONE NEGATIVE (NEGATIVE); URINE LEUK ESTERASE NEGATIVE (NEGATIVE); URINE NITRITE NEGATIVE (NEGATIVE); URINE PROTEIN NEGATIVE (NEGATIVE); URINE UROBILINOGEN NEGATIVE mg/dL (0.2-1.0)
[2018-01-05 12:29] LABS: INR 0.92 (0.82-1.09); PROTHROMBIN TIME (PATIENT) 10.4 SEC (9.7-13.0)
[2018-01-05] MEDS ORDERED: ACETAMINOPHEN 500 MG TABLET (FP) PO ONE (12:36)
[2018-01-05 12:40] LABS: ALBUMIN 3.8 g/dl (3.4-5.0); ANION GAP 8 (8-16); BILIRUBIN,TOTAL 0.3 mg/dL (0.2-1.0); BLOOD UREA NITROGEN 13 mg/dL (7-18); CALCIUM 9.3 mg/dL (8.5-10.1); CHLORIDE 105 mmol/L (98-107); CHOLESTEROL 241 mg/dL (50-200); CO2 26 mmol/L (21-32); CREATININE 0.8 mg/dL (0.55-1.02); GLUCOSE,RANDOM 109 mg/dL (74-106); SGPT/ALT 49 U/L (12-78); SODIUM 139 mmol/L (136-145); TOT PROT 7.7 g/dl (6.4-8.2); TRIGLYCERIDES 239 mg/dL (35-160)
[2018-01-05 12:41] LABS: ALK PHOS 80 U/L (45-117); HDL CHOLESTEROL 65 mg/dL (40-60); POTASSIUM 5.3 mmol/L (3.5-5.1); SGOT/AST 45 U/L (15-37)
[2018-01-05] MEDS ORDERED: ACETAMINOPHEN 325 MG TABLET (FP) ONE (13:17)
[2018-01-05] MEDS ORDERED: ONDANSETRON 4 MG/2 ML VIAL ONE (13:18)
[2018-01-05] MEDS ORDERED: ALPRAZolam 2 MG TABLET PO ONE (18:20)
[2018-01-05] MEDS ORDERED: ALPRAZolam 0.25 MG TABLET PO PRN ×2 (18:22→18:28)
[2018-01-05] MEDS ORDERED: ALPRAZolam 0.25 MG TABLET ONE (18:26)
[2018-01-05] MEDS ORDERED: ATORVASTATIN CA 80 MG TABLET (FP) PO ONE (20:50)
[2018-01-05] MEDS: SODIUM CHLORIDE 0.45% 1,000 ML IV SCH (21:42)
[2018-01-05] MEDS: ATORVASTATIN CA 80 MG TABLET (FP) PO SCH (21:43)
[2018-01-05] MEDS: DIVALPROEX SODIUM 250 MG TABLET E.C. PO SCH (21:43)
[2018-01-05] MEDS: MIRTAZAPINE 15 MG TABLET (FP) PO SCH (21:43)
[2018-01-06 03:59] VITALS: BMI 24.3
[2018-01-06] MEDS: LEVOTHYROXINE NA 25 MCG TABLET (FP) PO SCH (06:21)
[2018-01-06 06:44] LABS: BASO % 0.4 % (0-2.0); HEMATOCRIT 37.7 % (32.4-45.2); HEMOGLOBIN 12.4 GM/dL (10.7-15.3); LYMPH % 35.4 % (8-40); MCH 26.3 pg (25.7-33.7); MCHC 32.9 g/dl (32.0-36.0); MEAN CELL VOLUME 80.1 fl (80-96); MEAN PLT VOLUME 8.4 fl (7.5-11.1); MONO % 11.4 % (3.8-10.2); NEUT % 48.8 % (42.8-82.8); PLATELET COUNT 196 K/MM3 (134-434); RBC 4.71 M/mm3 (3.60-5.2); RDW 15.4 % (11.6-15.6); WHITE BLOOD COUNT 5.3 K/mm3 (4.0-10.0)
[2018-01-06 06:56] LABS: ALBUMIN 3.1 g/dl (3.4-5.0); ANION GAP 5 (8-16); BLOOD UREA NITROGEN 14 mg/dL (7-18); CALCIUM 8.4 mg/dL (8.5-10.1); CHLORIDE 110 mmol/L (98-107); CO2 27 mmol/L (21-32); GLUCOSE,RANDOM 88 mg/dL (74-106); POTASSIUM 4.1 mmol/L (3.5-5.1); SGOT/AST 24 U/L (15-37); SGPT/ALT 41 U/L (12-78); SODIUM 142 mmol/L (136-145)
[2018-01-06 07:11] LABS: ALK PHOS 64 U/L (45-117); BILIRUBIN,TOTAL 0.3 mg/dL (0.2-1.0); CREATININE 0.8 mg/dL (0.55-1.02); TOT PROT 6.1 g/dl (6.4-8.2)
--- NOTE | 2018-01-06 08:21 | CON.NEURO ---
Consult - Past Medical History Cardio/Vascular: Yes: HTN, Hyperlipdemia Gastrointestinal: Yes: Other ...: No Endocrine: Yes: Hypothyroidism - Alcohol/Substance Use Hx Alcohol Use: Yes (socially/1 beer) - Smoking History Smoking history: Former smoker Have you smoked in the past 12 months: No If you are a former smoker, when did you quit?: quit at age 23 Home Medications - Allergies Allergies/Adverse Reactions: Allergies Allergy/AdvReac Type Severity Reaction Status Date / Time pseudoephedrine HCl Allergy Intermediate palpitaiton Verified 01/05/18 09:50 [facility]] s - Home Medications Home Medications: Ambulatory Orders Aspirin [ASA -] 81 mg PO DAILY 08/04/14 Atorvastatin Ca [Lipitor] 80 mg PO HS 08/04/14 Divalproex [Depakote -] 250 mg PO BID 08/04/14 Losartan Potassium [Cozaar -] 50 mg PO DAILY #30 tablet 04/15/16 Calcium Carbonate/Vitamin D3 [Calcium 600-Vit D3 400 Tablet] 1 each PO DAILY 09/05 Cyanocobalamin (Vitamin B-12) [Vitamin B12] 2,500 mcg PO DAILY 06/24/16 Diltiazem Cd [Cardizem Cd -] 240 mg PO DAILY 06/24/16 Levothyroxine [Synthroid -] 25 mcg PO DAILY 06/24/16 Alendronate Sodium [Binosto] 70 mg PO WEEKLY 01/05/18 Mirtazapine [Remeron -] 15 mg PO HS 01/05/18 Rosuvastatin Calcium [Crestor] 20 mg PO DAILY 01/05/18 Physical Exam-Neuro Vital Signs: Vital Signs Temperature 97.8 F 01/06/18 05:55 Pulse Rate 68 01/06/18 05:55 Respiratory Rate 18 01/06/18 05:55 Blood Pressure 133/77 01/06/18 05:55 O2 Sat by Pulse Oximetry (%) 96 01/05/18 19:30 Labs: CBC, BMP 01/06/18 05:45 01/06/18 05:45 INR, PTT INR 0.92 (0.82-1.09) 01/05/18 11:40 Assessment/Plan cc Episode of Vertigo, now resolved HPI 67 year old female history of Osler webter syndrome, htn, hld , hypothyroidism, and prediabetes. She came with vertigo sensation. She denies any headache, dysphagia, dyarthria , diplopia or weakness . Patient was feeling nauseated and vomited as well. Now she feels fine. She walked to bathroom. She is sitting in chair and very comfortable. she had mri of brain and, carotid ultrasound, unremarkable. PMH as above SHX: colon CA resection, Social History no toxic habits Med:divalproex 250mg BID, Losartan 100mg daily, Levothyroxine .025mg daily, diltiazem 240mg Allergies: sudafed (tachycardia) ROS reviewed in chart Neurological Examination Alert oriented x 3, speech is normal eomi, pupil is reactive, no asymmetry motor strength is normal FTN,HTS were normal, no nystagmus sensation is normal ct head, mri of brain and carotid ultrasound no acute findings Assessment-Vertigo with vomiting, no other focal neurological symptoms, exam is normal and imaging is unremarkable. Most likley BPPV, symptoms resolved Plan- meclzine prn PT no further testing or treatment from neurological point of view follow up outpatient Thanking you so much Jonathan Jeter MD
[2018-01-06] MEDS: DIVALPROEX SODIUM 250 MG TABLET E.C. PO SCH ×2 (09:12→21:55)
[2018-01-06] MEDS: ASPIRIN 81 MG CHEWABLE TABLETS PO SCH (09:12)
[2018-01-06] MEDS: SODIUM CHLORIDE 0.45% 1,000 ML IV SCH ×2 (09:12→21:54)
[2018-01-06] MEDS ORDERED: LOSARTAN POTASSIUM 50 MG TABLET (FP) PO SCH (10:00)
--- NOTE | 2018-01-06 11:10 | EKG ---
Test Reason : Blood Pressure : / mmHG Vent. Rate : 071 BPM Atrial Rate : 071 BPM P-R Int : 174 ms QRS Dur : 070 ms QT Int : 374 ms P-R-T Axes : 062 -01 -36 degrees QTc Int : 406 ms POOR DATA QUALITY, INTERPRETATION MAY BE ADVERSELY AFFECTED NORMAL SINUS RHYTHM NONSPECIFIC ST AND T WAVE ABNORMALITY ABNORMAL ECG WHEN COMPARED WITH ECG OF 24-JUN-2016 11:13, VENT. RATE HAS DECREASED BY [address] NO LONGER DEPRESSED IN ANTERIOR LEADS NONSPECIFIC T WAVE ABNORMALITY NOW EVIDENT IN LATERAL LEADS Confirmed by YAA GERMAIN MD ([id number]) on 01/06/2018 11:09:27 AM Referred By: Confirmed By:YAA GERMAIN MD
--- NOTE | 2018-01-06 12:52 | HP ---
Admitting History and Physical - Primary Care Physician PCP: Enrique Landers - Admission Chief Complaint: dizziness History of Present Illness: ER HISTORY - History of Present Illness Initial Comments: 01/05/18 10:36 67 year old with history of Osler Perry Amelia Syndrome, HTN, HLD, hypothyroidism who presents with dizziness for the past 4 days. 4 days ago she had several episodes of vomiting food. Since then she has felt dizzy, as if the room is spinning, and has had a decreased appetite. She denies any watery diarrhea but notes that her stool is soft. She has a history of motion sickness and had moderate relief with meclizine. This morning she noted worsening nausea and dizziness. noted and elevated BP measured today with a systolic of 190 at home, with her baseline at 150. She admits to mild blurriness in vision and slight headache but denies chest pain, abdominal pain ringing in the ears and weakness. PMHX: as noted in HPI SHX: colon CA resection, Tob: none Etoh: none Rec drugs: none Med:divalproex 250mg BID, Losartan 100mg daily, Levothyroxine .025mg daily, diltiazem 240mg Allergies: sudafed (tachycardia) Pt examined by me in Telemetry with her Pt was feeling dizzy yesterday-- room spinning Headaches+ No SOB,palpitations No chest pain Pt ambulated from the bathroom -- no dizziness tells me that her BP at home is mostly uncontrolled History Source: Patient, Family Member Limitations to Obtaining History: No Limitations - Past Medical History Cardiovascular: Yes: HTN, Hyperlipdemia Gastrointestinal: Yes: Other ...: No Endocrine: Yes: Hypothyroidism - Smoking History Smoking history: Former smoker Have you smoked in the past 12 months: No If you are a former smoker, when did you quit?: quit at age 23 - Alcohol/Substance Use Hx Alcohol Use: Yes (/ beer) Home Medications - Allergies Allergies/Adverse Reactions: Allergies Allergy/AdvReac Type Severity Reaction Status Date / Time pseudoephedrine HCl Allergy Intermediate palpitaiton Verified 01/05/18 09:50 [From Sudafed] s - Home Medications Home Medications: Ambulatory Orders Aspirin [ASA -] 81 mg PO DAILY 08/04/14 Atorvastatin Ca [Lipitor] 80 mg PO HS 08/04/14 Divalproex [Depakote -] 250 mg PO BID 08/04/14 Losartan Potassium [Cozaar -] 50 mg PO DAILY #30 tablet 04/15/16 Calcium Carbonate/Vitamin D3 [Calcium 600-Vit D3 400 Tablet] 1 each PO DAILY 09/05 Cyanocobalamin (Vitamin B-12) [Vitamin B12] 2,500 mcg PO DAILY 06/24/16 Diltiazem Cd [Cardizem Cd -] 240 mg PO DAILY 06/24/16 Levothyroxine [Synthroid -] 25 mcg PO DAILY 06/24/16 Alendronate Sodium [Binosto] 70 mg PO WEEKLY 01/05/18 Mirtazapine [Remeron -] 15 mg PO HS 01/05/18 Rosuvastatin Calcium [Crestor] 20 mg PO DAILY 01/05/18 Review of Systems - Review of Systems Constitutional: denies: Chills, Lethargy, Loss of Appetite, Weakness Cardiovascular: denies: Chest Pain, Palpitations, Shortness of Breath Respiratory: denies: Cough Physical Examination Vital Signs: Vital Signs Temperature 97.7 F 01/06/18 10:00 Pulse Rate 73 01/06/18 10:00 Respiratory Rate 18 01/06/18 10:00 Blood Pressure 139/84 01/06/18 10:00 O2 Sat by Pulse Oximetry (%) 94 L 01/06/18 10:00 Constitutional: Yes: No Distress, Calm Cardiovascular: Yes: Regular Rate and Rhythm Respiratory: Yes: CTA Bilaterally Gastrointestinal: Yes: Normal Bowel Sounds, Soft. 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
[2018-01-06] MEDS ORDERED: MECLIZINE HCL 12.5 MG TABLET PO PRN (13:36)
--- NOTE | 2018-01-06 14:22 | ECHO ---
Name: SANGEETA, STAR Exam:Adult Echocardiogram Study Date: 01/06/2018 11:10 AM Reason For Study: dizziness Height: 64 in Weight: 145 lb BSA: 1.7 m2 MMode/2D Measurements & Calculations IVSd: 0.87 cm Ao root diam: 2.8 cm LVIDd: 4.5 cm LA dimension: 2.6 cm LVIDs: 2.9 cm LVPWd: 0.76 cm EDV(Teich): 90.8 ml TAPSE: 1.7 cm ESV(Teich): 31.4 ml RV S Jimmy: 10.5 cm/sec Doppler Measurements & Calculations MV E max jimmy: 70.1 cm/sec TR max jimmy: 229.5 cm/sec MV A max jimmy: 99.7 cm/sec TR max P.1 mmHg MV E/A: 0.70 MV dec time: 0.27 sec Med Peak E' Jimmy: 5.8 cm/sec Med E/e': 12.0 Lat Peak E' Jimmy: 10.8 cm/sec Lat E/e': 6.5 Procedure A two-dimensional transthoracic echocardiogram with color flow and Doppler was performed. Left Ventricle The left ventricular size, thickness and function are normal. The left ventricular ejection fraction is normal. E/A reversal consistent with but not diagnostic of poor LV compliance. The left ventricular w all motion is normal. Right Ventricle The right ventricle is normal in size and function. Atria Normal left and right atrial size and function. Mitral Valve There is mild mitral valve thickening. There is no mitral valve stenosis. There is mild mitral regurg itation. Tricuspid Valve There is mild tricuspid valve thickening. There is no tricuspid stenosis. There is mild tricuspid regurgitation. Right ventricular systolic pressure is normal. Aortic Valve The aortic valve is not well visualized. No hemodynamically significant valvular aortic stenosis. No aortic regurgitation is present. Pulmonic Valve The pulmonic valve is not well visualized. There is no pulmonic valvular stenosis. There is no pulmon ic valvular regurgitation. Great Vessels The aortic root is normal size. Pericardium/Pleura There is no pericardial effusion. Interpretation Summary The left ventricular ejection fraction is normal. The left ventricular wall motion is normal. Normal left and right atrial size and function. There is mild tricuspid regurgitation. Right ventricular systolic pressure is normal. E/A reversal consistent with but not diagnostic of poor LV compliance MD Scooter Calabrese 01/06/2018 02:21 PM
[2018-01-06] MEDS ORDERED: PT OWN MED DRAWER 7, Y5N ONE (16:17)
[2018-01-06] MEDS: ATORVASTATIN CA 80 MG TABLET (FP) PO SCH (21:55)
[2018-01-06] MEDS: LOSARTAN POTASSIUM 50 MG TABLET (FP) PO SCH (21:55)
[2018-01-06] MEDS: MIRTAZAPINE 15 MG TABLET (FP) PO SCH (21:55)
[2018-01-07] MEDS: LEVOTHYROXINE NA 25 MCG TABLET (FP) PO SCH (06:34)
[2018-01-07] MEDS ORDERED: PT OWN MED DRAWER 7, Y5N ONE (09:26)
[2018-01-07] MEDS: ASPIRIN 81 MG CHEWABLE TABLETS PO SCH (09:30)
[2018-01-07] MEDS: DIVALPROEX SODIUM 250 MG TABLET E.C. PO SCH (09:30)
[2018-01-07] MEDS: LOSARTAN POTASSIUM 50 MG TABLET (FP) PO SCH (09:34)
--- NOTE | 2018-01-07 11:35 | DS ---
Physical Examination Vital Signs: Vital Signs Temperature 97.5 F L 01/07/18 10:00 Pulse Rate 67 01/07/18 10:00 Respiratory Rate 18 01/07/18 10:00 Blood Pressure 142/82 01/07/18 10:00 O2 Sat by Pulse Oximetry (%) 98 01/07/18 09:36 Constitutional: Yes: No Distress, Calm Cardiovascular: Yes: Regular Rate and Rhythm Respiratory: Yes: CTA Bilaterally Gastrointestinal: Yes: Normal Bowel Sounds, Soft. No: Tenderness Edema: No Labs: CBC, BMP 01/06/18 05:45 01/06/18 05:45 Discharge Summary Reason For Visit: CVA Current Active Problems CVA (cerebral vascular accident) (Acute) Dehydration (Acute) Hypertensive urgency (Acute) Rtehj-Qjnta-Wjpzo disease (Acute) Vertigo (Acute) Hospital Course: Admitted for dizziness, HTN urgency CT head , MRI and MRA brain negative , carotid doppler negative Telemetry uneventful Seen by Neurology - vertigo-- advised Meclizine BP better controlled with increasing the medication stable for dc home Condition: Improved - Instructions Referrals: Enrique Landers MD [Primary Care Provider] - Disposition: HOME - Home Medications Comprehensive Discharge Medication List: Ambulatory Orders Aspirin [ASA -] 81 mg PO DAILY 08/04/14 Atorvastatin Ca [Lipitor] 80 mg PO HS 08/04/14 Divalproex [Depakote -] 250 mg PO BID 08/04/14 Losartan Potassium [Cozaar -] 50 mg PO DAILY #30 tablet 04/15/16 Calcium Carbonate/Vitamin D3 [Calcium 600-Vit D3 400 Tablet] 1 each PO DAILY 09/05 Cyanocobalamin (Vitamin B-12) [Vitamin B12] 2,500 mcg PO DAILY 06/24/16 Diltiazem Cd [Cardizem Cd -] 240 mg PO DAILY 06/24/16 Levothyroxine [Synthroid -] 25 mcg PO DAILY 06/24/16 Alendronate Sodium [Binosto] 70 mg PO WEEKLY 01/05/18 Mirtazapine [Remeron -] 15 mg PO HS 01/05/18 Rosuvastatin Calcium [Crestor] 20 mg PO DAILY 01/05/18
[2018-01-07 13:05] VITALS: BP 136/68; PULSE 68; TEMP 97.3
== END 2018-01-07 13:13 | disposition home or self-care (01) ==
LOC: JER 09:41 → JERBED 12:12 → UNDOADMOB 14:30 → JERBED 14:30 → INTOOBSV 14:30 → J4S 19:16 → JERBED 19:16
PROVIDERS: ADMIT Internal Medicine; ATTEND Internal Medicine
PROC: 3E033GC Introduction of Other Therapeutic Substance into Peripheral Vein, Percutaneous Approach (ICD-10-PCS; principal; 2018-01-05)
PROC: 3E0337Z Introduction of Electrolytic and Water Balance Substance into Peripheral Vein, Percutaneous Approach (ICD-10-PCS; 2018-01-05)
DX: I16.0 Hypertensive urgency (principal); R42 Dizziness and giddiness; I10 Essential (primary) hypertension; E78.5 Hyperlipidemia, unspecified; E03.9 Hypothyroidism, unspecified; I78.0 Hereditary hemorrhagic telangiectasia; E86.0 Dehydration; R73.03 Prediabetes; Z85.038 Personal history of other malignant neoplasm of large intestine; Z86.73 Personal history of transient ischemic attack (TIA), and cerebral infarction without residual deficits; Z87.891 Personal history of nicotine dependence
CPT/HCPCS: 36415; 70450-TC; 70544-TC; 70551-TC; 80053; 80164; 81003; 82465; 82550; 82607; 83718; 83721; 84443; 84478; 84484; 85025; 85610; 86850; 86900; 86901; 93005; 93010; 93306-TC; 93880-TC; 96374; 97116-GP; 97161-GP; 99283-25; G0378

== ENCOUNTER 2018-02-01 10:17 | Observation (INO) | payer OTHER ==
[2018-02-01 10:28] VITALS: BMI 24.1
--- NOTE | 2018-02-01 11:52 | PDOC ---
Attending Attestation - Resident Resident Name: Dwayne Hernandez - ED Attending Attestation I have performed the following: I have examined & evaluated the patient, The case was reviewed & discussed with the resident, I agree w/resident's findings & plan, Exceptions are as noted - HPI HPI: 02/01/18 11:44 67 year old female c/ hx of TIA, HTN, osler amadeo rendu syndrome (AVM), HTN, HLD, migraines, hypothyroidism, vertebral artery basilar stenosis presents with hypertension and transient left arm and left face numbness. Yesterday, the patient started to feel lightheaded and a mild headache. She had checked her BP and noted it was elevated to 170s/120s. She had taken her BP medications (and reports adherence to her meds). Went to bed and woke up around 9 am, and noted that she had left face and left arm tingling and numbness, and mild slurring of speech. Denies chest pain or SOB, recent illnesses, fevers, chills, cough, vomiting, diarrhea. Pt called her PMD but given that he was on vacation, pt was sent to the ER. - Physicial Exam PE: 02/01/18 11:57 GENERAL: Awake, alert, and fully oriented, in no acute distress HEAD: No signs of trauma EYES: EOMI, sclera anicteric, conjunctiva clear ENT: Auricles normal inspection, hearing grossly normal, nares paten NECK: Normal ROM, supple LUNGS: Breath sounds equal, clear to auscultation bilaterally. No wheezes, and no crackles HEART: Regular rate and rhythm, normal S1 and S2, no murmurs, rubs or gallops ABDOMEN: Soft, nontender, normoactive bowel sounds. No guarding, no rebound. No masses EXTREMITIES: Normal range of motion, no edema. No clubbing or cyanosis. No cords, erythema, or tenderness NEUROLOGICAL: Cranial nerves II through XII intact. Reports some mild subjective slurring of speech, no pronator drift, 5/5 strength upper and lower extremities, normal gait. Sensation intact throughout. FTN normal. Heel to wray normal. SKIN: Warm, Dry, normal turgor, no rashes or lesions noted. - Medical Decision Making 02/01/18 11:59 Vital Signs Temp Pulse Resp BP Pulse Ox 98.4 F 89 18 147/82 96 02/01/18 10:20 02/01/18 10:20 02/01/18 10:20 02/01/18 10:20 02/01/18 10:20 HTN c/ left sided symptoms (now resolved) are concerning for TIA. Head CT, labs, ECG Consult neuro. Pt is not a candidate for TPA given outside window and NIHSS of 0. 02/01/18 13:[address] negative. CBC, BMP 02/01/18 12:05 02/01/18 12:05 CMP Sodium 142 mmol/L (136-145) 02/01/18 12:05 Potassium 4.4 mmol/L (3.5-5.1) 02/01/18 12:05 Chloride 109 mmol/L (98-107) H 02/01/18 12:05 Carbon Dioxide 24 mmol/L (21-32) 02/01/18 12:05 Anion Gap 9 (8-16) 02/01/18 12:05 BUN 14 mg/dL (7-18) 02/01/18 12:05 Creatinine 0.9 mg/dL (0.55-1.02) 02/01/18 12:05 Creat Clearance w eGFR > 60 (>60) 02/01/18 12:05 Random Glucose 97 mg/dL (74-106) 02/01/18 12:05 Calcium 9.0 mg/dL (8.5-10.1) 02/01/18 12:05 Total Bilirubin 0.2 mg/dL (0.2-1.0) 02/01/18 12:05 AST 32 U/L (15-37) 02/01/18 12:05 ALT 45 U/L (12-78) 02/01/18 12:05 Alkaline Phosphatase 77 U/L (45-117) D 02/01/18 12:05 Creatine Kinase 78 IU/L (26-192) 02/01/18 12:05 Troponin I < 0.02 ng/ml (0.00-0.05) 02/01/18 12:05 Total Protein 7.6 g/dl (6.4-8.2) 02/01/18 12:05 Albumin 3.8 g/dl (3.4-5.0) 02/01/18 12:[address] Ybarra. He will follow as a network consultant. Admit. <Rosalio Foster - Last Filed: 02/01/18 13:17> - Medical Decision Making 11:50am Call placed to Dr. Ybarra, neurology communications maintainer, awaiting call back. 12:26pm Second call placed to Dr. Ybarra, case was discussed. 1:44pm Call placed to Dr. Carole Benites for admission, awaiting call back. 1:58pm Call returned from Dr. Carole Benites, case discussed with the resident. <Oliver Waite - Last Filed: 02/01/18 13:59> Heart Score/ECG Review #1 ECG reviewed & interpreted by me at: 11:40 02/01/18 11:59 NSR 75, no std/carissa, T wave flat aVL, TWI V3-V6, QTC 466 msec <Rosalio Foster - Last Filed: 02/01/18 13:17> NIH Stroke Scale - Last Known Well Date/Time & Onset Date Last Known Well: 01/31/18 - Initial Evaluation Level of consciousness: Alert Ask patient the month and their age: Answers both correctly Ask patient to open & close eyes; make fist and let go: Obeys both correctly Best gaze (horizontal eye movement): Normal Visual field testing: No visual field loss Facial paresis (Show teeth/raise eyebrows/close eyes tight): Normal symmetrical movement Motor Function: Left Arm: Normal Motor Function: Right Arm: Normal (extends arm 90 (or 45) degrees for 10 seconds without drift Motor Function: Left Leg: Normal (extends leg 30 degrees for 5 seconds without drift) Motor Function: Right Leg: Normal (extends leg 30 degrees for 5 seconds without drift) Limb Ataxia: No ataxia Sensory(Use pinprick test arms,legs,trunk,face/side to side): Normal Best language (Describe picture, name items, read sentences): No Aphasia Dysarthria (read several words): Normal articulation Extinction and Inattention: No abnormality - Total Score NIH Stroke Scale Score: 0 <Rosalio Foster - Last Filed: 02/01/18 13:17> Attestations - Attestations 02/01/18 12:26 Documentation prepared by Oliver Waite, acting as medical services coordinator for Rosalio Foster MD. <Oliver Waite - Last Filed: 02/01/18 13:59>
[2018-02-01 12:25] LABS: HEMATOCRIT 41.7 % (32.4-45.2); HEMOGLOBIN 13.9 GM/dL (10.7-15.3); MCH 26.4 pg (25.7-33.7); MCHC 33.3 g/dl (32.0-36.0); MEAN CELL VOLUME 79.2 fl (80-96); MEAN PLT VOLUME 8.2 fl (7.5-11.1); PLATELET COUNT 251 K/MM3 (134-434); RBC 5.27 M/mm3 (3.60-5.2); RDW 15.4 % (11.6-15.6); WHITE BLOOD COUNT 5.5 K/mm3 (4.0-10.0)
[2018-02-01 12:29] LABS: URINE APPEARANCE CLEAR; URINE BILIRUBIN NEGATIVE (<2.0 mg/dL); URINE COLOR LTYELLOW; URINE GLUCOSE (UA) NEGATIVE (NEGATIVE); URINE KETONE NEGATIVE (NEGATIVE); URINE LEUK ESTERASE NEGATIVE (NEGATIVE); URINE NITRITE NEGATIVE (NEGATIVE); URINE PROTEIN NEGATIVE (NEGATIVE); URINE UROBILINOGEN NEGATIVE mg/dL (0.2-1.0)
[2018-02-01 12:39] LABS: INR 0.97 (0.83-1.09)
[2018-02-01 12:42] LABS: ACTIVATED PTT 28.1 SECONDS (25.2-36.5)
[2018-02-01 12:56] LABS: ALBUMIN 3.8 g/dl (3.4-5.0); ANION GAP 9 (8-16); BILIRUBIN,TOTAL 0.2 mg/dL (0.2-1.0); BLOOD UREA NITROGEN 14 mg/dL (7-18); CHLORIDE 109 mmol/L (98-107); CO2 24 mmol/L (21-32); CREATININE 0.9 mg/dL (0.55-1.02); GLUCOSE,RANDOM 97 mg/dL (74-106); SGPT/ALT 45 U/L (12-78); SODIUM 142 mmol/L (136-145); TOT PROT 7.6 g/dl (6.4-8.2)
--- NOTE | 2018-02-01 12:57 | PDOC ---
History of Present Illness - General Chief Complaint: Blood Pressure Problem Stated Complaint: Blood Pressure Problem Time Seen by Provider: 02/01/18 10:42 History Source: Patient, Spouse Exam Limitations: No Limitations - History of Present Illness Initial Comments: 67 y/o female presenting to [facility] ER via private car complaining of high blood pressure and left-sided facial numbness. She comes at the urging of PCPs telephone nurse. Began feeling dizzy yesterday evening and found her BP to be elevated to 179/117. Dizziness resolved after approx. 1 hr. Awoke at 5a this morning, found her BP to still be elevated, and took her 3 antihypertensive medications as prescribed. Began experiencing left sided, lower facial numbness around that time. Found her BP to be elevated around 7a, so she elected to take a second diltiazem dose, which is not a prescribed dose. Called to make appt with PCP and was directed to ER by nurse as PCP is on vacation. Facial numbness resolving at time of interview. Denies syncope, headache, visual changes, hearing changes, trouble swallowing, SOB, or chest pain. Remote history of TIA, which involved left sided weakness to upper and lower extremities. Daily ASA therapy. Pt has a history of Xvoab-Jkmpz-Nmaqf which has mostly affected her lungs. Denies history of known intracerebral AVM. Past History - Past Medical History Allergies/Adverse Reactions: Allergies Allergy/AdvReac Type Severity Reaction Status Date / Time pseudoephedrine HCl Allergy Intermediate palpitaiton Verified 02/01/18 10:20 [facility] Home Medications: Ambulatory Orders Aspirin [ASA -] 81 mg PO DAILY 08/04/14 Atorvastatin Ca [Lipitor] 80 mg PO HS 08/04/14 Divalproex [Depakote -] 250 mg PO BID 08/04/14 Calcium Carbonate/Vitamin D3 [Calcium 600-Vit D3 400 Tablet] 1 each PO DAILY 09/05 Cyanocobalamin (Vitamin B-12) [Vitamin B12] 2,500 mcg PO DAILY 06/24/16 Diltiazem Cd [Cardizem Cd -] 240 mg PO DAILY 06/24/16 Levothyroxine [Synthroid -] 25 mcg PO DAILY 06/24/16 Alendronate Sodium [Binosto] 70 mg PO MO 01/05/18 Mirtazapine [Remeron -] 15 mg PO HS 01/05/18 Losartan Potassium [Cozaar -] 50 mg PO BID #60 tablet 01/07/18 Meclizine HCl [Antivert -] 12.5 mg PO Q6H PRN #30 tablet 01/07/18 Anemia: No Asthma: No Cancer: Yes (hx of colon) Cardiac Disorders: Yes (AFIB.) CVA: No COPD: No CHF: No DVT: No Dementia: No Diabetes: No GI Disorders: No Disorders: No HTN: Yes Hypercholesterolemia: Yes Liver Disease: No Seizures: No Thyroid Disease: Yes Other medical history: hfkrw-prxiz-wilse syndrom,migraine, embolization of lungs - Surgical History Abdominal Surgery: No Appendectomy: No Cardiac Surgery: No Cholecystectomy: No Lung Surgery: Yes (lung resection) Neurologic Surgery: No - Suicide/Smoking/Psychosocial Hx Smoking History: Former smoker Have you smoked in the past 12 months: No If you are a former smoker, when did you quit?: quit at age 23 Cigars Per Day: 0 Information on smoking cessation initiated: No Hx Alcohol Use: Yes (socially/1 beer) Drug/Substance Use Hx: No Substance Use Type: None Hx Substance Use Treatment: No Review of Systems - Review of Systems Able to Perform ROS?: Yes Is the patient limited Faroese proficient: No Constitutional: No: Weakness HEENTM: No: Blurred Vision, Recent change in vision, Double Vision, Hearing Loss , Difficulty Swallowing Respiratory: No: Shortness of Breath Cardiac (ROS): No: Chest Pain, Edema, Lightheadedness, Palpitations, Syncope ABD/GI: No: Difficulty Swallowing, Nausea, Vomiting Integumentary: No: Rash Neurological: Yes: Numbness, Dizziness (Resolved). No: Headache, Paresthesia, Seizure Hematologic/Lymphatic: No: Easy Bleeding, Easy Bruising *Physical Exam - Vital Signs Last Vital Signs Temp Pulse Resp BP Pulse Ox 98.4 F 81 18 139/92 98 02/01/18 10:20 02/01/18 11:00 02/01/18 11:00 02/01/18 11:00 02/01/18 11:00 - Physical Exam Comments: Constitutional: Well-developed, well-nourished female in no acute distress. Found comfortably in semi-fowlers position on hospital bed. Alert and oriented x4. Answered all questions appropriately and completely. Speech was non-labored , non-pressured. HEENT: Normocephalic. No obvious external signs of trauma. Hearing grossly normal. No nasal discharge. Neck is supple, trachea is midline. No JVD. Cardiovascular: Regular rate and regular rhythm. No murmur, rubs, clicks, or gallops. Peripheral pulses: Radial pulses full Respiratory: Equal chest rise and fall. Clear to auscultation bilaterally. No stridor, no wheezing, no rhonchi. Gastrointestinal: abdomen is soft, non-tender, non-distended. Neuro: Alert and oriented. Subjective numbness on left side of face in V3 distribution; facial movements symmetrical. Moving all four extremities spontaneously. Proximal and distal strength 5/5, chicken and fish cleaner strength 5/5 - equal and symmetric. Plantar flexion and dorsiflexion 5/5. Psych: Affect: appropriate. Mood: normal. Skin: Intact. No lesions. ED Treatment Course - LABORATORY CBC & Chemistry Diagram: 02/01/18 12:05 02/01/18 12:05 - ADDITIONAL ORDERS Additional order review: Laboratory Results 02/01/18 02/01/18 12:05 12:05 PT with INR 11.00 INR 0.97 PTT (Actin FS) 28.1 Urine Color Ltyellow Urine Appearance Clear Urine pH 5.0 D Ur Specific [place] 1.014 Urine Protein Negative Urine Glucose (UA) Negative Urine Ketones Negative Urine Blood Negative Urine Nitrite Negative Urine Bilirubin Negative Urine Urobilinogen Negative Ur Leukocyte Esterase Negative 02/01/18 12:05 RBC 5.27 H MCV 79.2 L MCHC 33.3 RDW 15.4 MPV 8.2 - RADIOLOGY Radiology Studies Ordered: Category Date Time Status HEAD CT (STROKE) [CT] Stat CT Scan 02/01/18 11:28 Completed Medical Decision Making - Medical Decision Making *Reviewed nursing notes and prior visit documentation. 58 y/o female complaining of facial numbness, HTN, and resolved acute dizziness in setting of h/o BPPV, HTN, Lkxti-Osfdy-Rbuwq, and TIA. Recent neuro evaluation on 06 January 2018. Afebrile. Vitals remarkable for mild hypertension without tachycardia. PE exam revealing facial numbness in V3 distribution. Concern for resolving TIA given dizziness and facial numbness. Will obtain head CT without contrast to evaluate for intracranial hemorrhage or acute ischemic changes. Will obtain EKG and cardiac profile to evaluate for atypical ACS presentation. Low suspicion for aortic dissection as pt denies chest or back pain, and pulses and BP are similar bilaterally. Low suspicion for nerve palsy as facial movements are intact. EKG showed sinus rhythm without ectopy. Normal axis. Normal intervals. Non- specific T-wave inversions in V3-V6. No ST segment elevation or depression. 12:27 Dr. Ji discussed case with Dr. Ybarra, neurologist load out person , who agrees with current management and plan. Would like the pt to be admitted. Will evaluate as inpatient. 12:[address] unremarkable for acute intracranial process. CBC and CMP unremarkable for derangement. Troponin negative. 13:[address] Benites, who admits for Dr. Landers. 14:[address] Benites. Agrees to admit pt to telemetry. No further ordered provided. Will f/u on pending UA. Discussed findings and plan for admission with pt. She expressed verbal understanding and agreement. *DC/Admit/Observation/Transfer Diagnosis at time of Disposition: TIA (transient ischemic attack) HTN (hypertension) Qualifiers: Hypertension type: unspecified Qualified Code(s): I10 - Essential (primary) hypertension - Discharge Dispostion Condition at time of disposition: Good Decision to Admit order: Yes - Referrals Referrals: Enrique Landers MD [Primary Care Provider] - - Patient Instructions - Post Discharge Activity
[2018-02-01 12:58] LABS: ALK PHOS 77 U/L (45-117)
[2018-02-01 13:08] LABS: POTASSIUM 4.4 mmol/L (3.5-5.1); SGOT/AST 32 U/L (15-37)
--- NOTE | 2018-02-01 13:37 | EKG ---
Test Reason : Blood Pressure : / mmHG Vent. Rate : 075 BPM Atrial Rate : 075 BPM P-R Int : 176 ms QRS Dur : 078 ms QT Int : 418 ms P-R-T Axes : 056 004 057 degrees QTc Int : 466 ms NORMAL SINUS RHYTHM NONSPECIFIC ST AND T WAVE ABNORMALITY ABNORMAL ECG WHEN COMPARED WITH ECG OF 05-JAN-2018 17:25, QT HAS LENGTHENED Confirmed by JOSÉ MOREIRA MD ([id number]) on 02/01/2018 1:37:27 PM Referred By: Confirmed By:JOSÉ MOREIRA MD
[2018-02-01] MEDS ORDERED: ACETAMINOPHEN 325 MG TABLET (FP) PO PRN (17:34)
--- NOTE | 2018-02-01 17:36 | HP ---
Admitting History and Physical - Primary Care Physician PCP: Enrique Landers - Admission History of Present Illness: pt seen/ examined in er Case discussed with er resident Per er records 67 year old female c/ hx of TIA, HTN, osler amadeo rendu syndrome (AVM), HTN, HLD, migraines, hypothyroidism, vertebral artery basilar stenosis presents with hypertension and transient left arm and left face numbness. Yesterday, the patient started to feel lightheaded and a mild headache. She had checked her BP and noted it was elevated to 170s/120s. She had taken her BP medications (and reports adherence to her meds). Went to bed and woke up around 9 am, and noted that she had left face and left arm tingling and numbness, and mild slurring of speech. Denies chest pain or SOB, recent illnesses, fevers, chills, cough, vomiting, diarrhea. Pt called her PMD but given that he was on vacation, pt was sent to the ER. Ct head -ve pt being admitted for observation Pt at time of my exam comfortable denies cp/sob/abd pain. denies headche no fever/ chills no cough History Source: Patient Limitations to Obtaining History: No Limitations - Past Medical History Cardiovascular: Yes: HTN, Hyperlipdemia Gastrointestinal: Yes: Other Endocrine: Yes: Hypothyroidism - Smoking History Smoking history: Former smoker Have you smoked in the past 12 months: No If you are a former smoker, when did you quit?: quit at age 23 - Alcohol/Substance Use Hx Alcohol Use: Yes (socially/1 beer) Home Medications - Allergies Allergies/Adverse Reactions: Allergies Allergy/AdvReac Type Severity Reaction Status Date / Time pseudoephedrine HCl Allergy Intermediate palpitaiton Verified 02/01/18 10:20 [From Amanda] s - Home Medications Home Medications: Ambulatory Orders Aspirin [ASA -] 81 mg PO DAILY 08/04/14 Atorvastatin Ca [Lipitor] 80 mg PO HS 08/04/14 Divalproex [Depakote -] 250 mg PO BID 08/04/14 Calcium Carbonate/Vitamin D3 [Calcium 600-Vit D3 400 Tablet] 1 each PO DAILY 09/05 Cyanocobalamin (Vitamin B-12) [Vitamin B12] 2,500 mcg PO DAILY 06/24/16 Diltiazem Cd [Cardizem Cd -] 240 mg PO DAILY 06/24/16 Levothyroxine [Synthroid -] 25 mcg PO DAILY 06/24/16 Alendronate Sodium [Binosto] 70 mg PO MO 01/05/18 Mirtazapine [Remeron -] 15 mg PO HS 01/05/18 Losartan Potassium [Cozaar -] 50 mg PO BID #60 tablet 01/07/18 Meclizine HCl [Antivert -] 12.5 mg PO Q6H PRN #30 tablet 01/07/18 Review of Systems Findings/Remarks: see tunica-biloxi Physical Examination Vital Signs: Vital Signs Temperature 98.4 F 02/01/18 10:20 Pulse Rate 81 02/01/18 11:00 Respiratory Rate 18 02/01/18 11:00 Blood Pressure 139/92 02/01/18 11:00 O2 Sat by Pulse Oximetry (%) 98 02/01/18 11:00 Constitutional: Yes: No Distress, Calm Eyes: Yes: WNL, Conjunctiva Clear, PERRL HENT: Yes: WNL, Tonsillar Exudate Cardiovascular: Yes: Regular Rate and Rhythm Respiratory: Yes: CTA Bilaterally Gastrointestinal: Yes: Normal Bowel Sounds, Soft Edema: No Neurological: Yes: WNL, Alert, Cran Nerves II-XII Intact Psychiatric: Yes: Alert Labs: CBC, BMP 02/01/18 12:05 02/01/18 12:05 Imaging - Results Cat Scan: Report Reviewed EKG: Report Reviewed Problem List - Problems (1) Dizziness Code(s): R42 - DIZZINESS AND GIDDINESS (2) HTN (hypertension) Code(s): I10 - ESSENTIAL (PRIMARY) HYPERTENSION Qualifiers: Hypertension type: unspecified Qualified Code(s): I10 - Essential (primary ) hypertension Assessment/Plan stable monitor today No evidence of CVA neurology consult pending will follow
[2018-02-01] MEDS: HEPARIN NA (PORCINE) 5,000 UNITS/ML 1ML VIAL SQ SCH (21:36)
[2018-02-01] MEDS: LOSARTAN POTASSIUM 50 MG TABLET (FP) PO SCH (21:36)
[2018-02-01] MEDS: DIVALPROEX SODIUM 250 MG TABLET E.C. PO SCH (21:37)
[2018-02-01] MEDS ORDERED: MIRTAZAPINE 15 MG TABLET (FP) PO SCH (22:00)
[2018-02-01] MEDS ORDERED: ATORVASTATIN CA 80 MG TABLET (FP) PO SCH (22:00)
[2018-02-02] MEDS: ASPIRIN 81 MG CHEWABLE TABLETS PO SCH ×2 (00:15→10:07)
[2018-02-02] MEDS ORDERED: LEVOTHYROXINE NA 25 MCG TABLET (FP) PO SCH (07:00)
--- NOTE | 2018-02-02 08:47 | CONSULT ---
Consult - text type - Consultation Consultation Note: Neurology History of Present Illness 67 y/o female presenting to [facility] ER via private car complaining of high blood pressure and left-sided facial numbness. She presented at the urging of PCPs telephone nurse. Reportedly Began feeling dizzy yesterday evening and found her BP to be elevated to 179/117. Dizziness resolved after approx. 1 hr. Awoke at 5a , found her BP to still be elevated, and took her 3 antihypertensive medications as prescribed. Began experiencing left sided, lower facial numbness around that time. Found her BP to be elevated around 7a, so she elected to take a second diltiazem dose, Called to make appt with PCP and was directed to ER by nurse as PCP is on vacation. Ct head reviewed and discussed, no acute changes. She reports numbness resolved and likely 2/2 to uncontrolled HTN. States she is at baseline and no deficits. Past History - Past Medical History Allergies/Adverse Reactions: Allergies Allergy/AdvReac Type Severity Reaction Status Date / Time pseudoephedrine HCl Allergy Intermediate palpitaiton Verified 02/01/18 10:20 [From Amanda] s Home Medications: Ambulatory Orders Aspirin [ASA -] 81 mg PO DAILY 08/04/14 Atorvastatin Ca [Lipitor] 80 mg PO HS 08/04/14 Divalproex [Depakote -] 250 mg PO BID 08/04/14 Calcium Carbonate/Vitamin D3 [Calcium 600-Vit D3 400 Tablet] 1 each PO DAILY 09/05 Cyanocobalamin (Vitamin B-12) [Vitamin B12] 2,500 mcg PO DAILY 06/24/16 Diltiazem Cd [Cardizem Cd -] 240 mg PO DAILY 06/24/16 Levothyroxine [Synthroid -] 25 mcg PO DAILY 06/24/16 Alendronate Sodium [Binosto] 70 mg PO MO 01/05/18 Mirtazapine [Remeron -] 15 mg PO HS 01/05/18 Losartan Potassium [Cozaar -] 50 mg PO BID #60 tablet 01/07/18 Meclizine HCl [Antivert -] 12.5 mg PO Q6H PRN #30 tablet 01/07/18 Anemia: No Asthma: No Cancer: Yes (hx of colon) Cardiac Disorders: Yes (AFIB.) CVA: No COPD: No CHF: No DVT: No Dementia: No Diabetes: No GI Disorders: No Disorders: No HTN: Yes Hypercholesterolemia: Yes Liver Disease: No Seizures: No Thyroid Disease: Yes Other medical history: [id number] syndrom,migraine, embolization of lungs - Surgical History Abdominal Surgery: No Appendectomy: No Cardiac Surgery: No Cholecystectomy: No Lung Surgery: Yes (lung resection) Neurologic Surgery: No - Suicide/Smoking/Psychosocial Hx Smoking History: Former smoker Have you smoked in the past 12 months: No If you are a former smoker, when did you quit?: quit at age 23 Cigars Per Day: 0 Information on smoking cessation initiated: No Hx Alcohol Use: Yes (socially/1 beer) Drug/Substance Use Hx: No Substance Use Type: None Hx Substance Use Treatment: No Review of Systems - Review of Systems Able to Perform ROS?: Yes Is the patient limited Haitian proficient: No Constitutional: No: Weakness HEENTM: No: Blurred Vision, Recent change in vision, Double Vision, Hearing Loss , Difficulty Swallowing Respiratory: No: Shortness of Breath Cardiac (ROS): No: Chest Pain, Edema, Lightheadedness, Palpitations, Syncope ABD/GI: No: Difficulty Swallowing, Nausea, Vomiting Integumentary: No: Rash Neurological: Yes: Numbness, Dizziness (Resolved). No: Headache, Paresthesia, Seizure Hematologic/Lymphatic: No: Easy Bleeding, Easy Bruising *Physical Exam Vital Signs Temperature 98.0 F 02/02/18 02:00 Pulse Rate 69 02/02/18 06:00 Respiratory Rate 12 02/02/18 06:00 Blood Pressure 142/80 02/02/18 06:00 O2 Sat by Pulse Oximetry (%) 94 L 02/01/18 18:15 - Physical Exam Constitutional: Well-developed, well-nourished female in no acute distress. Found comfortably in semi-fowlers position on hospital bed. Alert and oriented x4. Answered all questions appropriately and completely. Speech was non-labored , non-pressured. HEENT: Normocephalic. No obvious external signs of trauma. Hearing grossly normal. No nasal discharge. Neck is supple, trachea is midline. No JVD. Cardiovascular: Regular rate and regular rhythm. No murmur, rubs, clicks, or gallops. Peripheral pulses: Radial pulses full Respiratory: Equal chest rise and fall. Clear to auscultation bilaterally. No stridor, no wheezing, no rhonchi. Gastrointestinal: abdomen is soft, non-tender, non-distended. Neuro: Alert and oriented. Cn intact; facial movements symmetrical. Moving all four extremities spontaneously. 5/5, gait deferred Psych: Affect: appropriate. Mood: normal. Laboratory Results 02/01/18 02/01/18 12:05 12:05 PT with INR 11.00 INR 0.97 PTT (Actin FS) 28.1 Urine Color Ltyellow Urine Appearance Clear Urine pH 5.0 D Ur Specific Ruso 1.014 Urine Protein Negative Urine Glucose (UA) Negative Urine Ketones Negative Urine Blood Negative Urine Nitrite Negative Urine Bilirubin Negative Urine Urobilinogen Negative Ur Leukocyte Esterase Negative 02/01/18 12:05 RBC 5.27 H MCV 79.2 L MCHC 33.3 RDW 15.4 MPV 8.2 - RADIOLOGY Ct head reviewed Medical Decision Making 67 y/o female presenting to [facility] ER via private car complaining of high blood pressure and left-sided facial numbness. She presented at the urging of PCPs telephone nurse. Reportedly Began feeling dizzy yesterday evening and found her BP to be elevated to 179/117. Dizziness resolved after approx. 1 hr. Awoke at 5a , found her BP to still be elevated, and took her 3 antihypertensive medications as prescribed. Began experiencing left sided, lower facial numbness around that time. Found her BP to be elevated around 7a, so she elected to take a second diltiazem dose, Called to make appt with PCP and was directed to ER by nurse as PCP is on vacation. Ct head reviewed and discussed, no acute changes. She reports numbness resolved and likely 2/2 to uncontrolled HTN. States she is at baseline and no deficits. Continue blood pressure control, would not require further MRI at this time as symptoms resolved and correlated with BP elevation. Continue ASA 81mg, statin. Continue synthroid for hypothyroidism. Neurologically stable at this time.
[2018-02-02] MEDS ORDERED: CYANOCOBALAMIN 1,000 MCG TABLET (FP) PO SCH (10:00)
[2018-02-02] MEDS ORDERED: CALCIUM 500MG/VIT-D 200 UNITS COMBO TABLET (FP) PO SCH (10:00)
[2018-02-02] MEDS: LOSARTAN POTASSIUM 50 MG TABLET (FP) PO SCH (10:04)
[2018-02-02] MEDS: DIVALPROEX SODIUM 250 MG TABLET E.C. PO SCH (10:04)
[2018-02-02] MEDS: HEPARIN NA (PORCINE) 5,000 UNITS/ML 1ML VIAL SQ SCH (10:07)
[2018-02-02 10:11] VITALS: BP 124/62; PULSE 72; TEMP 98.4
--- NOTE | 2018-02-02 12:34 | DS ---
Physical Examination Vital Signs: Vital Signs Temperature 98.4 F 02/02/18 10:00 Pulse Rate 72 02/02/18 10:00 Respiratory Rate 18 02/02/18 10:00 Blood Pressure 124/62 02/02/18 10:00 O2 Sat by Pulse Oximetry (%) 94 L 02/01/18 18:15 Constitutional: Yes: No Distress, Calm Cardiovascular: Yes: Regular Rate and Rhythm Respiratory: Yes: CTA Bilaterally Gastrointestinal: Yes: Normal Bowel Sounds, Soft. No: Tenderness Edema: No Labs: CBC, BMP 02/01/18 12:05 02/01/18 12:05 Discharge Summary Reason For Visit: TRANSIENT ISCHEMIC ATTACK, HYPERTENSION Current Active Problems Dizziness (Acute) HTN (hypertension) (Acute) TIA (transient ischemic attack) (Acute) Hospital Course: Admitted for possible TIA Noted to have elevated BP at home Pt took extra dose of meds and came to ER BP controlled here ct head negative seen by neurology-- no further recommendations She had work up previous admission stable for dc home will need to check BP BID and bring her readings to her PCP Condition: Good - Instructions Referrals: Enrique Landers MD [Primary Care Provider] - Disposition: HOME - Home Medications Comprehensive Discharge Medication List: Ambulatory Orders Aspirin [ASA -] 81 mg PO DAILY 08/04/14 Atorvastatin Ca [Lipitor] 80 mg PO HS 08/04/14 Divalproex [Depakote -] 250 mg PO BID 08/04/14 Calcium Carbonate/Vitamin D3 [Calcium 600-Vit D3 400 Tablet] 1 each PO DAILY 09/05 Cyanocobalamin (Vitamin B-12) [Vitamin B12] 2,500 mcg PO DAILY 06/24/16 Diltiazem Cd [Cardizem Cd -] 240 mg PO DAILY 06/24/16 Levothyroxine [Synthroid -] 25 mcg PO DAILY 06/24/16 Alendronate Sodium [Binosto] 70 mg PO MO 01/05/18 Mirtazapine [Remeron -] 15 mg PO HS 01/05/18 Losartan Potassium [Cozaar -] 50 mg PO BID #60 tablet 01/07/18 Meclizine HCl [Antivert -] 12.5 mg PO Q6H PRN #30 tablet 01/07/18
== END 2018-02-02 14:17 | disposition home or self-care (01) ==
LOC: JER 10:17 → JERBED 14:02 → INTOOBSV 14:02 → J4S 18:15
PROVIDERS: ADMIT Internal Medicine; ATTEND Internal Medicine
PROC: 3E013GC Introduction of Other Therapeutic Substance into Subcutaneous Tissue, Percutaneous Approach (ICD-10-PCS; principal; 2018-02-01)
DX: G45.9 Transient cerebral ischemic attack, unspecified (principal); I10 Essential (primary) hypertension; I78.0 Hereditary hemorrhagic telangiectasia; E78.5 Hyperlipidemia, unspecified; E03.9 Hypothyroidism, unspecified; R42 Dizziness and giddiness; Z85.038 Personal history of other malignant neoplasm of large intestine; Z87.891 Personal history of nicotine dependence; Z86.73 Personal history of transient ischemic attack (TIA), and cerebral infarction without residual deficits; Z79.82 Long term (current) use of aspirin
CPT/HCPCS: 36415; 70450-TC; 80053; 81003; 82550; 84484; 85027; 85610; 85730; 87086; 93005; 93010; 99283-25; G0378; J1644

== ENCOUNTER 2018-07-08 07:26 | Inpatient (IN) | payer OTHER ==
--- NOTE | 2018-07-08 08:05 | PDOC ---
Attending Attestation - Resident Resident Name: Juan Posey - HPI HPI: 07/08/18 09:01 Pt presents to the ED complaining of generalized abdominal pain, nausea, and diarrhea that started yesterday afternoon. Pain is diffuse but mostly R sided and moderate in severity. Denies fever or vomiting. Denies urinary complaints. Reports that symptoms started after eating prepared food from a salad bar, but denies sick contacts. - Physicial Exam PE: 07/08/18 09:04 Agree with resident exam. PAtinet is alert and oriented and appears moderate uncomfortable. + diffuse abdominal tenderness without guarding or rebound. No CVA tenderness on my exam. - Medical Decision Making 07/08/18 09:06 Pt presents to the Ed complaining of diffuse abdominal pain, nausea and vomiting. Abdomen is diffusely tender on my exam. Differential includes viral gastroenteritis, UTI, colitis, diverticulitis, less likely ACS, less likely mesenteric ischemia. Will check labs and CT abdomen pelvis, give pain control and reassess.
[2018-07-08] MEDS ORDERED: ONDANSETRON 4 MG/2 ML VIAL IVPUSH ONE (08:11)
[2018-07-08] MEDS ORDERED: SODIUM CHLORIDE 0.9% 1000 ML INFUS.BAG IV ONE (08:11)
--- NOTE | 2018-07-08 08:11 | PDOC ---
History of Present Illness - General Chief Complaint: Pain, Acute Stated Complaint: ABD PAIN Time Seen by Provider: 07/08/18 07:59 History Source: Patient Exam Limitations: No Limitations - History of Present Illness Initial Comments: 07/08/18 08:10 The patient is a 68F with a PMH of TIA, HTN, osler amadeo rendu syndrome (AVM), HTN, HLD, migraines, hypothyroidism, vertebral artery basilar stenosis who presents to the ER with abdominal pain. The patient describes sharp, intermittent, b/l lower quadrant abdominal pain which does not radiate. She states that she's had 7-8 bouts of nonbloody diarrhea, but may have seen blood on the last BM. She admits to nausea without any vomiting. She denies dysuria but admits to fever of 100.6 and chills. She denies CP, SOB, numbness, tingling , and weakness. Past History - Past Medical History Allergies/Adverse Reactions: Allergies Allergy/AdvReac Type Severity Reaction Status Date / Time pseudoephedrine HCl Allergy Intermediate palpitaiton Verified 02/01/18 10:20 [From Amanda] s Home Medications: Ambulatory Orders Alendronate Sodium [Binosto] 70 mg PO WEEKLY 07/08/18 Atorvastatin Ca [Lipitor] 20 mg PO HS 07/08/18 Diltiazem Cd [Cardizem Cd -] 240 mg PO DAILY 07/08/18 Divalproex Sodium [Depakote] 250 mg PO BID 07/08/18 Hydrochlorothiazide 12.5 mg PO DAILY 07/08/18 Irbesartan 300 mg PO DAILY 07/08/18 Levothyroxine [Synthroid -] 25 mcg PO DAILY 07/08/18 Anemia: No Asthma: No Cancer: Yes (hx of colon) Cardiac Disorders: Yes (AFIB.) CVA: No COPD: No CHF: No DVT: No Dementia: No Diabetes: No GI Disorders: No Disorders: No HTN: Yes Hypercholesterolemia: Yes Liver Disease: No Seizures: No Thyroid Disease: Yes (hypothyroid) Other medical history: [facility] Rendu syndrome, verbal artery basilar stenosis. - Surgical History Abdominal Surgery: No Appendectomy: No Cardiac Surgery: No Cholecystectomy: No Lung Surgery: Yes (lung resection) Neurologic Surgery: No - Immunization History Immunization Up to Date: No - Suicide/Smoking/Psychosocial Hx Smoking History: Never smoked Have you smoked in the past 12 months: No If you are a former smoker, when did you quit?: quit at age 23 Cigars Per Day: 0 Information on smoking cessation initiated: No Hx Alcohol Use: No Drug/Substance Use Hx: No Substance Use Type: None Hx Substance Use Treatment: No Review of Systems - Review of Systems Able to Perform ROS?: Yes Comments:: 07/08/18 08:41 GENERAL/CONSTITUTIONAL: Positive for fever and chills. No weakness. HEAD, EYES, EARS, NOSE AND THROAT: No change in vision. No ear pain or discharge. No sore throat. CARDIOVASCULAR: No chest pain, palpitations, or lightheadedness. RESPIRATORY: No cough, wheezing, shortness of breath, or hemoptysis. GASTROINTESTINAL: Positive for nausea, diarrhea, and abdominal pain. GENITOURINARY: No dysuria, frequency, hematuria, or change in urination. MUSCULOSKELETAL: No joint or muscle swelling or pain. No neck or back pain. SKIN: No rash or lesions. NEUROLOGIC: No headache, numbness, tingling, focal weakness, loss of consciousness, or change in strength/sensation. Is the patient limited Pakistani proficient: No *Physical Exam - Vital Signs Last Vital Signs Temp Pulse Resp BP Pulse Ox 98.0 F 118 H 16 128/84 100 07/08/18 07:37 07/08/18 07:37 07/08/18 07:37 07/08/18 07:37 07/08/18 07:37 - Physical Exam Comments: 07/08/18 08:42 GENERAL: Well developed, well nourished. Awake and alert. No acute distress. HEENT: Normocephalic, atraumatic. Hearing grossly normal. Moist mucous membranes. No conjunctival pallor. Sclera are non-icteric. NECK: Supple. Full ROM. No JVD. CARDIOVASCULAR: Regular rate and rhythm. No murmurs, rubs, or gallops. PULMONARY: No evidence of respiratory distress. Lungs clear to auscultation bilaterally. No wheezing, rales or rhonchi. ABDOMINAL: Soft. Non-tender. Non-distended. No rebound or guarding. GENITOURINARY: R CVA tenderness. MUSCULOSKELETAL: Normal range of motion at all joints. No bony deformities or tenderness. EXTREMITIES: No cyanosis. No clubbing. No edema. No calf tenderness or swelling. SKIN: Warm and dry. Normal capillary refill. No rashes. No jaundice. NEUROLOGICAL: Alert, awake, appropriate. Cranial nerves 2-12 grossly intact. Normal speech. Gait is normal without ataxia. PSYCHIATRIC: Cooperative. Good eye contact. Appropriate mood and affect. Moderate Sedation - Procedure Monitoring Vital Signs: Procedure Monitoring Vital Signs Temperature 98.0 F 07/08/18 07:37 Pulse Rate 118 H 07/08/18 07:37 Respiratory Rate 16 07/08/18 07:37 Blood Pressure 128/84 07/08/18 07:37 O2 Sat by Pulse Oximetry (%) 100 07/08/18 07:37 ED Treatment Course - LABORATORY CBC & Chemistry Diagram: 07/08/18 08:33 07/08/18 08:33 Medical Decision Making - Medical Decision Making 07/08/18 08:44 The patient is a 68F with an extensive PMH who presents to the ER with complaints of abdominal pain. The patient has a nontender abdomen but has R CVA tenderness and fever at home, concerning for pyelo. Concern for UTI, diverticulitis, mesenteric ischemia. Will order labs and CTAP. Treating pain with tylenol. 07/08/18 10:41 Pt states her pain is improved. Pending UA and CT read. 07/08/18 11:27 CT shows colitis of ascending and transverse colon. Giving metronidazole and cipro. Will page Dr. Benites for admission. 07/08/18 11:48 I have endorsed the patient to Dr. Helms for admission. *DC/Admit/Observation/Transfer Diagnosis at time of Disposition: Colitis - Discharge Dispostion Condition at time of disposition: Guarded Decision to Admit order: Yes - Referrals Referrals: Enrique Landers MD [Primary Care Provider] - - Patient Instructions - Post Discharge Activity
[2018-07-08] MEDS ORDERED: ACETAMINOPHEN 1000 MG/100 ML VIAL (NON FORMULARY) IVPB ONE (08:37)
[2018-07-08] MEDS ORDERED: ACETAMINOPHEN INJECTION 100 ML IVPB ONE (08:39)
[2018-07-08] MEDS ORDERED: ONDANSETRON 4 MG/2 ML VIAL ONE (08:39)
[2018-07-08] MEDS ORDERED: FAMOTIDINE 20 MG/50 ML IVPB 20 MG/50 ML MG IVPB ONE ×2 (08:40→10:25)
[2018-07-08 08:56] LABS: BASO % 0.2 % (0-2.0); EOS % 0.1 % (0-4.5); HEMATOCRIT 40.4 % (32.4-45.2); HEMOGLOBIN 13.8 GM/dL (10.7-15.3); LYMPH % 9.9 % (8-40); MCH 26.6 pg (25.7-33.7); MCHC 34.1 g/dl (32.0-36.0); MEAN CELL VOLUME 77.9 fl (80-96); MEAN PLT VOLUME 8.7 fl (7.5-11.1); MONO % 10.1 % (3.8-10.2); NEUT % 79.7 % (42.8-82.8); PLATELET COUNT 229 K/MM3 (134-434); RBC 5.19 M/mm3 (3.60-5.2); RDW 15.1 % (11.6-15.6); WHITE BLOOD COUNT 14.4 K/mm3 (4.0-10.0)
[2018-07-08 09:11] LABS: INR 1.01 (0.83-1.09); PROTHROMBIN TIME (PATIENT) 11.9 SEC (9.7-13.0)
[2018-07-08 09:31] LABS: ALBUMIN 3.6 g/dl (3.4-5.0); ALK PHOS 72 U/L (45-117); ANION GAP 10 MMOL/L (8-16); BILIRUBIN,TOTAL 0.5 mg/dL (0.2-1); BLOOD UREA NITROGEN 21 mg/dL (7-18); CHLORIDE 102 mmol/L (98-107); CO2 26 mmol/L (21-32); GLUCOSE,RANDOM 113 mg/dL (74-106); POTASSIUM 3.7 mmol/L (3.5-5.1); SGOT/AST 10 U/L (15-37); SGPT/ALT 22 U/L (13-61); SODIUM 137 mmol/L (136-145)
[2018-07-08 10:12] LABS: URINE APPEARANCE CLEAR; URINE BILIRUBIN NEGATIVE (<2.0 mg/dL); URINE COLOR STRAW; URINE GLUCOSE (UA) NEGATIVE (NEGATIVE); URINE KETONE NEGATIVE (NEGATIVE); URINE LEUK ESTERASE NEGATIVE (NEGATIVE); URINE NITRITE NEGATIVE (NEGATIVE); URINE PROTEIN NEGATIVE (NEGATIVE); URINE UROBILINOGEN NEGATIVE mg/dL (0.2-1.0)
[2018-07-08] MEDS ORDERED: CIPROFLOXACIN 400 MG/D5W 400 MG/200 ML IVPB IVPB ONE (11:29)
--- NOTE | 2018-07-08 11:49 | HP ---
Admitting History and Physical - Primary Care Physician PCP: Enrique Landers - Admission Chief Complaint: abd pain History of Present Illness: ER HISTORY History of Present Illness Initial Comments: 07/08/18 08:10 The patient is a 68F with a PMH of TIA, HTN, osler amadeo rendu syndrome (AVM), HTN, HLD, migraines, hypothyroidism, vertebral artery basilar stenosis who presents to the ER with abdominal pain. The patient describes sharp, intermittent, b/l lower quadrant abdominal pain which does not radiate. She states that she's had 7-8 bouts of nonbloody diarrhea, but may have seen blood on the last BM. She admits to nausea without any vomiting. She denies dysuria but admits to fever of 100.6 and chills. She denies CP, SOB, numbness, tingling , and weakness. Pt examined has abd pain ,no nausea Loose stools + dizzy+ received iv fluids and iv antibiotics History Source: Patient Limitations to Obtaining History: No Limitations - Past Medical History Cardiovascular: Yes: HTN, Hyperlipdemia Gastrointestinal: Yes: Other Endocrine: Yes: Hypothyroidism - Smoking History Smoking history: Never smoked Have you smoked in the past 12 months: No If you are a former smoker, when did you quit?: quit at age 23 - Alcohol/Substance Use Hx Alcohol Use: No Home Medications - Allergies Allergies/Adverse Reactions: Allergies Allergy/AdvReac Type Severity Reaction Status Date / Time pseudoephedrine HCl Allergy Intermediate palpitaiton Verified 02/01/18 10:20 [From [facility]] s - Home Medications Home Medications: Ambulatory Orders Alendronate Sodium [Binosto] 70 mg PO WEEKLY 07/08/18 Atorvastatin Ca [Lipitor] 20 mg PO HS 07/08/18 Diltiazem Cd [Cardizem Cd -] 240 mg PO DAILY 07/08/18 Divalproex Sodium [Depakote] 250 mg PO BID 07/08/18 Hydrochlorothiazide 12.5 mg PO DAILY 07/08/18 Irbesartan 300 mg PO DAILY 07/08/18 Levothyroxine [Synthroid -] 25 mcg PO DAILY 07/08/18 Review of Systems - Review of Systems Constitutional: reports: Chills, Fever Gastrointestinal: reports: Abdominal Pain, Diarrhea Physical Examination Vital Signs: Vital Signs Temperature 99.7 F H 07/08/18 11:06 Pulse Rate 108 H 07/08/18 11:06 Respiratory Rate 16 07/08/18 11:06 Blood Pressure 127/79 07/08/18 11:06 O2 Sat by Pulse Oximetry (%) 98 07/08/18 11:06 Constitutional: Yes: No Distress, Calm Cardiovascular: Yes: Regular Rate and Rhythm Respiratory: Yes: CTA Bilaterally Gastrointestinal: Yes: Normal Bowel Sounds, Soft, Tenderness. No: Distention Edema: No Labs: CBC, BMP 07/08/18 08:33 07/08/18 08:33 Imaging - Results Cat Scan: Report Reviewed EKG: Image Reviewed Problem List - Problems (1) Colitis Code(s): K52.9 - NONINFECTIVE GASTROENTERITIS AND COLITIS, UNSPECIFIED (2) Infectious diarrhea Code(s): A09 - INFECTIOUS GASTROENTERITIS AND COLITIS, UNSPECIFIED (3) Colitis Code(s): K52.9 - NONINFECTIVE GASTROENTERITIS AND COLITIS, UNSPECIFIED (4) Dehydration Code(s): E86.0 - DEHYDRATION (5) Diarrhea Code(s): R19.7 - DIARRHEA, UNSPECIFIED (6) Dizziness Code(s): R42 - DIZZINESS AND GIDDINESS (7) HTN (hypertension) Code(s): I10 - ESSENTIAL (PRIMARY) HYPERTENSION Qualifiers: Hypertension type: unspecified Qualified Code(s): I10 - Essential (primary ) hypertension (8) Jfdwa-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
--- NOTE | 2018-07-08 11:55 | EKG ---
Test Reason : Blood Pressure : / mmHG Vent. Rate : 112 BPM Atrial Rate : 112 BPM P-R Int : 162 ms QRS Dur : 074 ms QT Int : 332 ms P-R-T Axes : 056 -06 022 degrees QTc Int : 453 ms SINUS TACHYCARDIA ABNORMAL ECG WHEN COMPARED WITH ECG OF 01-FEB-2018 11:37, VENT. RATE HAS INCREASED BY 37 BPM INVERTED T WAVES HAVE REPLACED NONSPECIFIC T WAVE ABNORMALITY IN ANTERIOR LEADS Confirmed by HERNAN DE LUNA, NICOLE ([id number]) on 07/08/2018 11:54:46 AM Referred By: Confirmed By:NICOLE BECERRA MD
[2018-07-08] MEDS: SODIUM CHLORIDE 0.45% 1,000 ML IV SCH (16:20)
[2018-07-08] MEDS: HEPARIN NA (PORCINE) 5,000 UNITS/ML 1ML VIAL SQ SCH (21:48)
[2018-07-09 01:05] VITALS: BMI 23.4
[2018-07-09] MEDS: HEPARIN NA (PORCINE) 5,000 UNITS/ML 1ML VIAL SQ SCH ×2 (09:13→21:45)
[2018-07-09] MEDS: SODIUM CHLORIDE 0.45% 1,000 ML IV SCH (09:14)
[2018-07-09 09:24] LABS: BASO % 0.3 % (0-2.0); EOS % 0.8 % (0-4.5); HEMATOCRIT 37.1 % (32.4-45.2); HEMOGLOBIN 12.1 GM/dL (10.7-15.3); LYMPH % 17.4 % (8-40); MCH 26.5 pg (25.7-33.7); MCHC 32.7 g/dl (32.0-36.0); MEAN CELL VOLUME 80.9 fl (80-96); MEAN PLT VOLUME 8.5 fl (7.5-11.1); MONO % 8.1 % (3.8-10.2); NEUT % 73.4 % (42.8-82.8); PLATELET COUNT 185 K/MM3 (134-434); RBC 4.58 M/mm3 (3.60-5.2); RDW 15.6 % (11.6-15.6)
[2018-07-09 09:39] LABS: ALBUMIN 2.9 g/dl (3.4-5.0); ALK PHOS 60 U/L (45-117); ANION GAP 10 MMOL/L (8-16); BILIRUBIN,TOTAL 0.4 mg/dL (0.2-1); BLOOD UREA NITROGEN 13 mg/dL (7-18); CALCIUM 8.2 mg/dL (8.5-10.1); CHLORIDE 106 mmol/L (98-107); CO2 25 mmol/L (21-32); CREATININE 0.9 mg/dL (0.55-1.3); GLUCOSE,RANDOM 162 mg/dL (74-106); POTASSIUM 3.2 mmol/L (3.5-5.1); SGOT/AST 8 U/L (15-37); SGPT/ALT 15 U/L (13-61); SODIUM 142 mmol/L (136-145); TOT PROT 5.8 g/dl (6.4-8.2)
--- NOTE | 2018-07-09 11:06 | PN ---
Progress Note (short form) - Note Progress Note: pt seen/ examined chart reviewed. feels slightly better Pain improved afebrile Tolerating liquids Vital Signs Temp 97.9 F 07/09/18 08:33 Pulse 92 H 07/09/18 08:33 Resp 18 07/09/18 08:33 BP 124/69 07/09/18 08:33 Pulse Ox 97 07/08/18 22:00 Intake & Output 07/08/18 07/08/18 07/09/18 11:59 23:59 11:59 Intake Total 120 850 Balance 120 850 Weight 140 lb 141 lb 0.2 oz Intake: IV 750 1/2 Normal Saline 1,000 750 ml @ 75 mls/hr IV ASDIR CARLA Rx#:[id number] IVPB 100 Oral 120 Other: Voiding Method Toilet Toilet Bowel Movement No No Height 5 ft 5 in 5 ft 5 in Body Mass Index (BMI) 23.3 23.4 Weight Measurement Method Est/Stated by Patient Active Medications Heparin Sodium (Porcine) (Heparin -) 5,000 unit SQ BID CARLA Last Admin: 07/09/18 09:13 Dose: 5,000 unit Metronidazole (Flagyl 500mg Premixed Ivpb -) 500 mg in 100 mls @ 100 mls/hr IVPB Q8H-IV CARLA Last Admin: 07/09/18 09:13 Dose: 100 mls/hr Levofloxacin (Levaquin 500 Mg Premixed Ivpb -) 500 mg in 100 mls @ 100 mls/hr IVPB DAILY [facility]; Protocol Last Admin: 07/09/18 10:17 Dose: 100 mls/hr Potassium Chloride/Dextrose/Sod Cl (D5-1/2ns+20 Meq Kcl -) 20 meq in 1,000 mls @ 100 mls/hr IV ASDIR CARLA CBC, BMP 07/09/18 08:50 07/09/18 08:50 Physical Exam. Awake and comfortable in no distress lungs- diminished at bases cvs- s1, s2 rrr abd- soft/ Mild tenderness--- on deep palpation--- lower quadrants no rigidity or rebound neuro- aox3 A/P acute diverticulitis Continue present care change fluids to D5 with potassium supplement Monitor lites antibiotics Patient reports had colonoscopy done a few years ago--- need to repeat as outpatient--- once acute phase resolves Advance diet as tolerated Will follow Problem List - Problems (1) Colitis Code(s): K52.9 - NONINFECTIVE GASTROENTERITIS AND COLITIS, UNSPECIFIED
[2018-07-09] MEDS: D5-1/2NS+20 MEQ KCL - 20 MEQ/1,000 ML INFUS.BAG IV SCH (11:17)
[2018-07-09] MEDS ORDERED: ONDANSETRON 4 MG/2 ML VIAL IVPB PRN (15:30)
--- NOTE | 2018-07-09 17:48 | CON.GI ---
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 This evening she denies having fever, The abdominal pain improved and diarrhea is slightly improved. She is hungry and wants to eat. The diarrhea was non-bloody, no recent anibiotic and travel history. - Past Medical History Cardio/Vascular: Yes: HTN, Hyperlipdemia Gastrointestinal: Yes: Other Endocrine: Yes: Hypothyroidism - Alcohol/Substance Use Hx Alcohol Use: No - Smoking History Smoking history: Never smoked Have you smoked in the past 12 months: No If you are a former smoker, when did you quit?: quit at age 23 Home Medications - Allergies Allergies/Adverse Reactions: Allergies Allergy/AdvReac Type Severity Reaction Status Date / Time pseudoephedrine HCl Allergy Intermediate palpitaiton Verified 02/01/18 10:20 [From [facility]] s - Home Medications Home Medications: Ambulatory Orders Alendronate Sodium [Binosto] 70 mg PO WEEKLY 07/08/18 Atorvastatin Ca [Lipitor] 20 mg PO HS 07/08/18 Diltiazem Cd [Cardizem Cd -] 240 mg PO DAILY 07/08/18 Divalproex Sodium [Depakote] 250 mg PO BID 07/08/18 Hydrochlorothiazide 12.5 mg PO DAILY 07/08/18 Irbesartan 300 mg PO DAILY 07/08/18 Levothyroxine [Synthroid -] 25 mcg PO DAILY 07/08/18 Review of Systems - Review of Systems Constitutional: denies: No Symptoms, Chills, Diaphoresis, Fever, Lethargy, Loss of Appetite, Malaise, Night Sweats, Unintentional Wgt. Loss, Weakness, Other Eyes: denies: No Symptoms, Blind Spots, Blurred Vision, Double Vision, Eye Pain , Floaters, Photophobia, Recent Change in Vision, Other HENT: denies: No Symptoms, Difficult Swallowing, Ear Discharge, Ear Pain, Epistaxis, Gingival Bleeding, Hearing Loss, Mouth Swelling, Nasal Congestion, Ocular Prosthesis, Throat Pain, Toothache, Ringing in Ears, Other Neck: denies: No Symptoms, Decreased ROM, Lumps, Pain on Movement, Stiffness, Swollen Glands, Tenderness, Other Gastrointestinal: reports: Abdominal Pain, Diarrhea. denies: Melena, Nausea, Vomiting Physical Exam-GI Vital Signs: Vital Signs Temperature 98.0 F 07/09/18 17:28 Pulse Rate 85 07/09/18 17:28 Respiratory Rate 19 07/09/18 17:28 Blood Pressure 149/84 07/09/18 17:28 O2 Sat by Pulse Oximetry (%) 97 07/09/18 09:00 Constitutional: Yes: Well Nourished Eyes: Yes: Conjunctiva Clear HENT: Yes: Atraumatic Neck: Yes: Supple Cardiovascular: Yes: Regular Rate and Rhythm Respiratory: Yes: CTA Bilaterally ...Palpate: Yes: Soft. No: Firm/Rigid, Guarding, Hepatomegaly, Mass, Pulsatile Mass, Splenomegaly, Tenderness, Tenderness, Epigastium Labs: CBC, BMP 07/09/18 08:50 07/09/18 08:50 INR, PTT INR 1.01 (0.83-1.09) 07/08/18 08:33 Hepatic Panel Total Bilirubin 0.4 mg/dL (0.2-1) 07/09/18 08:50 AST 8 U/L (15-37) L 07/09/18 08:50 ALT 15 U/L (13-61) 07/09/18 08:50 Alkaline Phosphatase 60 U/L (45-117) 07/09/18 08:50 Albumin 2.9 g/dl (3.4-5.0) L 07/09/18 08:50 Home Medications Medication Instructions Recorded Alendronate Sodium [Binosto] 70 mg PO WEEKLY 07/08/18 Atorvastatin Ca [Lipitor] 20 mg PO HS 07/08/18 Diltiazem Cd [Cardizem Cd -] 240 mg PO DAILY 07/08/18 Divalproex Sodium [Depakote] 250 mg PO BID 07/08/18 Hydrochlorothiazide 12.5 mg PO DAILY 07/08/18 Irbesartan 300 mg PO DAILY 07/08/18 Levothyroxine [Synthroid -] 25 mcg PO DAILY 07/08/18 Home Medication List Medication Instructions Recorded Confirmed Type Alendronate Sodium [Binosto] 70 mg PO WEEKLY 07/08/18 07/08/18 History Atorvastatin Ca [Lipitor] 20 mg PO HS 07/08/18 07/08/18 History Diltiazem Cd [Cardizem Cd -] 240 mg PO DAILY 07/08/18 07/08/18 History Divalproex Sodium [Depakote] 250 mg PO BID 07/08/18 07/08/18 History Hydrochlorothiazide 12.5 mg PO DAILY 07/08/18 07/08/18 History Irbesartan 300 mg PO DAILY 07/08/18 07/08/18 History Levothyroxine [Synthroid -] 25 mcg PO DAILY 07/08/18 07/08/18 History Active Medications Generic Name Dose Route Start Last Admin Trade Name Freq PRN Reason Stop Dose Admin Diltiazem HCl 240 mg 07/09/18 17:00 07/09/18 17:17 Cardizem Cd - PO 240 mg DAILY CARLA Administration Heparin Sodium (Porcine) 5,000 unit 07/08/18 22:00 07/09/18 09:13 Heparin - SQ 5,000 unit BID CARLA Administration Metronidazole 500 mg in 100 mls @ 100 mls/hr 07/08/18 18:00 07/09/18 17:16 Flagyl 500mg Premixed Ivpb - IVPB 100 mls/hr Q8H-IV CARLA Administration Levofloxacin 500 mg in 100 mls @ 100 mls/hr 07/09/18 10:00 07/09/18 10:17 Levaquin 500 Mg Premixed Ivpb - IVPB 100 mls/hr DAILY CARLA Administration Protocol Potassium Chloride/Dextrose/Sod Cl 20 meq in 1,000 mls @ 100 mls/hr 07/09/18 11:15 07/09/18 11:17 D5-1/2ns+20 Meq Kcl - IV 100 mls/hr ASDIR CARLA Administration Ondansetron HCl 4 mg 07/09/18 15:30 Zofran Injection IVPB Q8H PRN NAUSEA Imaging - Results Cat Scan: Report Reviewed Problem List - Problems (1) Infectious diarrhea Assessment/Plan: R> stool nalaysis continue antibiotics advance diet further gi w/u including colonoscopy as an outpatient she was made aware to follow-up Code(s): A09 - INFECTIOUS GASTROENTERITIS AND COLITIS, UNSPECIFIED
[2018-07-09] MEDS ORDERED: PATIENT'S OWN MEDICATION (NON-FORMULARY) (Irbesartan [Irbesartan] 300 MG) PO SCH (18:15)
[2018-07-09] MEDS: LOSARTAN POTASSIUM 50 MG TABLET (FP) PO SCH (20:00)
[2018-07-09] MEDS ORDERED: PT OWN MED DRAWER 7, Y5N ONE (20:28)
[2018-07-09] MEDS: DIVALPROEX SODIUM 250 MG TABLET E.C. PO SCH (21:44)
[2018-07-09] MEDS: ATORVASTATIN CA 20 MG TABLET (FP) PO SCH (21:44)
[2018-07-10] MEDS: D5-1/2NS+20 MEQ KCL - 20 MEQ/1,000 ML INFUS.BAG IV SCH ×2 (00:01→13:05)
[2018-07-10] MEDS: LEVOTHYROXINE NA 25 MCG TABLET (FP) PO SCH (06:11)
[2018-07-10 07:43] LABS: BASO % 0.2 % (0-2.0); EOS % 1.5 % (0-4.5); HEMATOCRIT 34.8 % (32.4-45.2); HEMOGLOBIN 11.6 GM/dL (10.7-15.3); MCH 26.7 pg (25.7-33.7); MCHC 33.3 g/dl (32.0-36.0); MEAN CELL VOLUME 80.2 fl (80-96); MEAN PLT VOLUME 8.9 fl (7.5-11.1); MONO % 11.1 % (3.8-10.2); NEUT % 61.2 % (42.8-82.8); PLATELET COUNT 184 K/MM3 (134-434); RBC 4.33 M/mm3 (3.60-5.2); RDW 15.7 % (11.6-15.6); WHITE BLOOD COUNT 8.2 K/mm3 (4.0-10.0)
[2018-07-10 08:28] LABS: ALBUMIN 2.8 g/dl (3.4-5.0); ALK PHOS 57 U/L (45-117); ANION GAP 6 MMOL/L (8-16); BILIRUBIN,TOTAL 0.2 mg/dL (0.2-1); BLOOD UREA NITROGEN 8 mg/dL (7-18); CALCIUM 7.9 mg/dL (8.5-10.1); CHLORIDE 111 mmol/L (98-107); CO2 27 mmol/L (21-32); CREATININE 0.8 mg/dL (0.55-1.3); GLUCOSE,RANDOM 96 mg/dL (74-106); POTASSIUM 4.2 mmol/L (3.5-5.1); SGOT/AST 8 U/L (15-37); SGPT/ALT 14 U/L (13-61); SODIUM 143 mmol/L (136-145); TOT PROT 5.7 g/dl (6.4-8.2)
[2018-07-10] MEDS: LOSARTAN POTASSIUM 50 MG TABLET (FP) PO SCH (09:11)
[2018-07-10] MEDS: HEPARIN NA (PORCINE) 5,000 UNITS/ML 1ML VIAL SQ SCH ×2 (09:11→21:47)
[2018-07-10] MEDS: DIVALPROEX SODIUM 250 MG TABLET E.C. PO SCH ×2 (09:16→21:47)
--- NOTE | 2018-07-10 12:33 | PN ---
Progress Note (short form) - Note Progress Note: Feels better Vital Signs - 24 hr 07/09/18 07/09/18 07/09/18 13:50 17:28 21:00 Temperature 97.9 F 98.0 F Pulse Rate 86 85 Respiratory 20 19 Rate Blood Pressure 123/76 149/84 O2 Sat by Pulse 96 Oximetry (%) 07/09/18 07/10/18 07/10/18 22:00 06:00 09:00 Temperature 98.1 F 98.6 F Pulse Rate 77 75 Respiratory 18 18 18 Rate Blood Pressure 136/82 108/64 O2 Sat by Pulse 98 Oximetry (%) 07/10/18 09:31 Temperature 98.1 F Pulse Rate 80 Respiratory 18 Rate Blood Pressure 130/83 O2 Sat by Pulse Oximetry (%) Current Medications Generic Name Dose Route Start Last Admin Trade Name Freq PRN Reason Stop Dose Admin Atorvastatin Calcium 20 mg 07/09/18 22:00 07/09/18 21:44 Lipitor - PO 20 mg HS CARLA Administration Diltiazem HCl 240 mg 07/09/18 17:00 07/10/18 09:11 Cardizem Cd - PO 240 mg DAILY CARLA Administration Divalproex Sodium 250 mg 07/09/18 22:00 07/10/18 09:16 Depakote - PO 250 mg BID CARLA Administration Heparin Sodium (Porcine) 5,000 unit 07/08/18 22:00 07/10/18 09:11 Heparin - SQ 5,000 unit BID CARLA Administration Metronidazole 500 mg in 100 mls @ 100 mls/hr 07/08/18 18:00 07/10/18 09:09 Flagyl 500mg Premixed Ivpb - IVPB 100 mls/hr Q8H-IV CARLA Administration Levofloxacin 500 mg in 100 mls @ 100 mls/hr 07/09/18 10:00 07/10/18 10:18 Levaquin 500 Mg Premixed Ivpb - IVPB 100 mls/hr DAILY CARLA Administration Protocol Potassium Chloride/Dextrose/Sod Cl 20 meq in 1,000 mls @ 100 mls/hr 07/09/18 11:15 07/10/18 00:01 D5-1/2ns+20 Meq Kcl - IV 100 mls/hr ASDIR CARLA Administration Levothyroxine Sodium 25 mcg 07/10/18 07:00 07/10/18 06:11 Synthroid - PO 25 mcg DAILY@0700 CARLA Administration Losartan Potassium 100 mg 07/09/18 18:15 07/10/18 09:11 Cozaar - PO 100 mg DAILY CARLA Administration Ondansetron HCl 4 mg 07/09/18 15:30 Zofran Injection IVPB Q8H PRN NAUSEA Laboratory Results - last 24 hr 07/10/18 07/10/18 06:30 06:30 WBC 8.2 RBC 4.33 Hgb 11.6 Hct 34.8 MCV 80.2 MCH 26.7 MCHC 33.3 RDW 15.7 H Plt Count 184 MPV 8.9 Absolute Neuts (auto) 5.0 Neutrophils % 61.2 Lymphocytes % 26.0 D Monocytes % 11.1 H Eosinophils % 1.5 D Basophils % 0.2 Nucleated RBC % 0 Sodium 143 Potassium 4.2 Chloride 111 H Carbon Dioxide 27 Anion Gap 6 L BUN 8 Creatinine 0.8 Creat Clearance w eGFR > 60 Random Glucose 96 Calcium 7.9 L Total Bilirubin 0.2 AST 8 L ALT 14 Alkaline Phosphatase 57 Total Protein 5.7 L Albumin 2.8 L S1 S2 RRR Lungs clear Abd- soft,tender LLQ no edema PLAN GI eval noted iv antibiotics advance diet will need colonoscopy as outpt Problem List - Problems (1) Colitis Code(s): K52.9 - NONINFECTIVE GASTROENTERITIS AND COLITIS, UNSPECIFIED (2) Infectious diarrhea Code(s): A09 - INFECTIOUS GASTROENTERITIS AND COLITIS, UNSPECIFIED (3) Dehydration Code(s): E86.0 - DEHYDRATION (4) Dizziness Code(s): R42 - DIZZINESS AND GIDDINESS
[2018-07-10] MEDS: ATORVASTATIN CA 20 MG TABLET (FP) PO SCH (21:47)
[2018-07-11] MEDS: LEVOTHYROXINE NA 25 MCG TABLET (FP) PO SCH (06:05)
[2018-07-11] MEDS ORDERED: PT OWN MED DRAWER 7, Y5N ONE (09:29)
[2018-07-11] MEDS: HEPARIN NA (PORCINE) 5,000 UNITS/ML 1ML VIAL SQ SCH ×2 (09:41→22:00)
[2018-07-11] MEDS: LOSARTAN POTASSIUM 50 MG TABLET (FP) PO SCH (09:41)
[2018-07-11] MEDS: DIVALPROEX SODIUM 250 MG TABLET E.C. PO SCH ×2 (09:41→22:00)
--- NOTE | 2018-07-11 11:31 | PN ---
Progress Note (short form) - Note Progress Note: feeling nauseous no abdominal pain S1 S2 RRR Lungs clear Abd- soft,tender LLQ no edema PLAN GI eval noted iv antibiotics advance diet will need colonoscopy as outpt Problem List - Problems (1) Colitis Code(s): K52.9 - NONINFECTIVE GASTROENTERITIS AND COLITIS, UNSPECIFIED (2) Infectious diarrhea Code(s): A09 - INFECTIOUS GASTROENTERITIS AND COLITIS, UNSPECIFIED (3) Colitis Code(s): K52.9 - NONINFECTIVE GASTROENTERITIS AND COLITIS, UNSPECIFIED (4) Dehydration Code(s): E86.0 - DEHYDRATION (5) Diarrhea Code(s): R19.7 - DIARRHEA, UNSPECIFIED (6) Dizziness Code(s): R42 - DIZZINESS AND GIDDINESS (7) HTN (hypertension) Code(s): I10 - ESSENTIAL (PRIMARY) HYPERTENSION Qualifiers: Hypertension type: unspecified Qualified Code(s): I10 - Essential (primary ) hypertension (8) Cleay-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
[2018-07-11] MEDS: PANTOPRAZOLE 40 MG TABLET (FP) PO SCH (12:56)
[2018-07-11] MEDS: D5-1/2NS+20 MEQ KCL - 20 MEQ/1,000 ML INFUS.BAG IV SCH (16:46)
[2018-07-11] MEDS: ATORVASTATIN CA 20 MG TABLET (FP) PO SCH (22:00)
[2018-07-12] MEDS ORDERED: PT OWN MED DRAWER 7, Y5N ONE (03:02)
[2018-07-12 05:53] VITALS: PULSE 69
[2018-07-12] MEDS: LEVOTHYROXINE NA 25 MCG TABLET (FP) PO SCH (06:05)
--- NOTE | 2018-07-12 07:51 | PN ---
GI Progress Note Subjective: Patient states that diarrhea is improving, she had one 1 episode of LBM this morning. Complain of having decreased appetite and early satiety. Denies abdominal pain, nausea, vomiting. - Objective Vital Signs: Vital Signs Temperature 98.0 F 07/12/18 05:51 Pulse Rate 69 07/12/18 05:51 Respiratory Rate 18 07/12/18 05:51 Blood Pressure 122/57 L 07/12/18 05:51 O2 Sat by Pulse Oximetry (%) 98 07/11/18 21:00 Constitutional: Well Nourished, No Distress, Calm Eyes: Yes: Conjunctiva Clear Neck: Yes: Supple Cardiovascular: Yes: Regular Rate and Rhythm Respiratory: Yes: Regular, CTA Bilaterally Gastrointestinal Inspection: Yes: WNL ...Auscultate: Yes: Normoactive Bowel Sounds ...Palpate: Yes: Soft ...Percussion: Yes: Tympanitic Neurological: Yes: Alert Labs: CBC, BMP 07/10/18 06:30 07/10/18 06:30 INR, PTT INR 1.01 (0.83-1.09) 07/08/18 08:33 Problem List - Problems (1) Infectious diarrhea Assessment/Plan: R> continue antibiotics advance diet as tolerated further gi w/u including colonoscopy as an outpatient instructed to follow-up after discharge Code(s): A09 - INFECTIOUS GASTROENTERITIS AND COLITIS, UNSPECIFIED
[2018-07-12 08:52] VITALS: BP 153/80; TEMP 98.1
[2018-07-12] MEDS: DIVALPROEX SODIUM 250 MG TABLET E.C. PO SCH (09:31)
[2018-07-12] MEDS: HEPARIN NA (PORCINE) 5,000 UNITS/ML 1ML VIAL SQ SCH (09:31)
[2018-07-12] MEDS: LOSARTAN POTASSIUM 50 MG TABLET (FP) PO SCH (09:32)
[2018-07-12] MEDS: PANTOPRAZOLE 40 MG TABLET (FP) PO SCH (10:22)
--- NOTE | 2018-07-12 11:43 | DS ---
Physical Examination Vital Signs: Vital Signs Temperature 98.1 F 07/12/18 08:50 Pulse Rate 69 07/12/18 08:50 Respiratory Rate 18 07/12/18 08:50 Blood Pressure 153/80 07/12/18 08:50 O2 Sat by Pulse Oximetry (%) 98 07/11/18 21:00 Findings/Remarks: pt seen/ examined chart reviewed Feels better Tolerating diet Afebrile Constitutional: Yes: No Distress, Calm Eyes: Yes: Conjunctiva Clear Cardiovascular: Yes: Regular Rate and Rhythm Respiratory: Yes: CTA Bilaterally Gastrointestinal: Yes: Normal Bowel Sounds, Soft Edema: No Neurological: Yes: Alert Labs: CBC, BMP 07/10/18 06:30 07/10/18 06:30 Discharge Summary Reason For Visit: COLITIS Current Active Problems Colitis (Acute) Infectious diarrhea (Acute) Hospital Course: admitted for abdominal pain diagnosed with colitis Treated with IV antibiotics And fluids GI followed clinically much better stable for discharge Will discharge on by mouth antibiotics Patient to follow with his PMD--- in one week patient also instructed to follow with GI--- Patient needs colonoscopy--in next few months--- Patient in agreement Medications reconciled Prescription sent to pharmacy discussed with nursing staff also Condition: Stable - Instructions Referrals: Enrique Landers MD [Primary Care Provider] - Disposition: HOME - Home Medications Comprehensive Discharge Medication List: Ambulatory Orders Alendronate Sodium [Binosto] 70 mg PO WEEKLY 07/08/18 Atorvastatin Ca [Lipitor] 20 mg PO HS 07/08/18 Diltiazem Cd [Cardizem Cd -] 240 mg PO DAILY 07/08/18 Divalproex Sodium [Depakote] 250 mg PO BID 07/08/18 Hydrochlorothiazide 12.5 mg PO DAILY 07/08/18 Irbesartan 300 mg PO DAILY 07/08/18 Levothyroxine [Synthroid -] 25 mcg PO DAILY 07/08/18 Pantoprazole Sodium [Protonix -] 40 mg PO DAILY 30 Days #30 tablet.ec 07/12/18 levoFLOXacin [Levaquin -] 500 mg PO DAILY #4 tablet 07/12/18 metroNIDAZOLE [Flagyl -] 500 mg PO TID 4 Days #12 tablet 07/12/18
== END 2018-07-12 13:39 | disposition home or self-care (01) | DRG 392 ==
LOC: JER 07:26 → JERBED 11:49 → J7W 20:19 → OBSVTOIN 07-09 14:51
PROVIDERS: ADMIT Internal Medicine; ATTEND Internal Medicine
DX: A09 Infectious gastroenteritis and colitis, unspecified (principal); I78.0 Hereditary hemorrhagic telangiectasia; I10 Essential (primary) hypertension; E78.5 Hyperlipidemia, unspecified; E03.9 Hypothyroidism, unspecified
CPT/HCPCS: 36415; 74177-TC; 80053; 81003; 83605; 85025; 85610; 86850; 86900; 86901; 87086; 93005; 93010; 99282-25; G0378; J0131; J1644; J7030

== ENCOUNTER 2021-10-15 23:56 | Emergency (ER) | payer OTHER, BC ==
[2021-10-16 00:12] VITALS: BP 169/88; PULSE 83; TEMP 97.6; BMI 24.1
[2021-10-16] MEDS ORDERED: METHOCARBAMOL 500 MG TABLET PO ONE (00:28)
[2021-10-16] MEDS ORDERED: KETOROLAC TROMETHAMINE 15 MG/ML VIAL IM ONE (00:28)
[2021-10-16] MEDS ORDERED: LIDOCAINE 5% TOPICAL PATCH TP ONE (00:29)
[2021-10-16] MEDS ORDERED: METHOCARBAMOL 500 MG TABLET ONE (00:32)
[2021-10-16] MEDS ORDERED: LIDOCAINE 5% TOPICAL PATCH ONE (00:33)
[2021-10-16] MEDS ORDERED: KETOROLAC TROMETHAMINE 30 MG/1 ML VIAL ONE (00:33)
[2021-10-16] MEDS ORDERED: LIDOCAINE PATCH REMOVAL MC ONE (13:00)
== END 2021-10-16 01:18 | disposition home or self-care (01) ==
LOC: JER 23:56
PROC: 3E023GC Introduction of Other Therapeutic Substance into Muscle, Percutaneous Approach (ICD-10-PCS; principal; 2021-10-15)
DX: M54.50 Low back pain, unspecified (principal)
CPT/HCPCS: 90471; 99284-25

== ENCOUNTER 2021-10-16 05:07 | Emergency (ER) | payer OTHER, BC ==
[2021-10-16 05:35] VITALS: TEMP 97.6; BMI 24.1
[2021-10-16 06:28] LABS: BASO % 0.6 % (0-2.0); EOS % 2.2 % (0-4.5); HEMATOCRIT 40.2 % (32.4-45.2); LYMPH % 41.5 % (8-40); MCH 25.1 pg (25.7-33.7); MCHC 32.3 g/dl (32.0-36.0); MEAN CELL VOLUME 77.7 fl (80-96); MEAN PLT VOLUME 8.3 fl (7.5-11.1); MONO % 13.6 % (3.8-10.2); NEUT % 42.1 % (42.8-82.8); PLATELET COUNT 247 10^3/uL (134-434); RBC 5.18 M/mm3 (3.60-5.2); WHITE BLOOD COUNT 6.1 K/mm3 (4.0-10.0)
[2021-10-16 06:30] LABS: EPI CELLS 4 /uL (0-25.1); HYALINE CASTS 0 /uL (0-3.1); PH,URINE 5.5 (5.0-8.0); URINE APPEARANCE CLEAR; URINE BACTERIA 16 /uL (0-1359); URINE BILIRUBIN NEGATIVE (NEGATIVE); URINE COLOR YELLOW; URINE GLUCOSE (UA) NEGATIVE (NEGATIVE); URINE KETONE NEGATIVE (NEGATIVE); URINE LEUK ESTERASE TRACE (NEGATIVE); URINE NITRITE NEGATIVE (NEGATIVE); URINE PROTEIN NEGATIVE (NEGATIVE); URINE RBC 4 /uL (0-23.9); URINE UROBILINOGEN 0.2 mg/dL (0.2-1.0); URINE WBC 6 /uL (0-25.8)
[2021-10-16 06:37] LABS: ALBUMIN 3.9 g/dl (3.4-5.0); BLOOD UREA NITROGEN 22.8 mg/dL (7-18); CALCIUM 9.2 mg/dL (8.5-10.1)
[2021-10-16 06:40] LABS: CREATININE 1.1 mg/dL (0.55-1.3)
[2021-10-16 06:42] LABS: BILIRUBIN,TOTAL 0.3 mg/dL (0.2-1); TOT PROT 7.3 g/dl (6.4-8.2)
[2021-10-16 07:16] VITALS: BP 152/87; PULSE 68
== END 2021-10-16 07:27 | disposition home or self-care (01) ==
LOC: JER 05:07
DX: M54.50 Low back pain, unspecified (principal)
CPT/HCPCS: 36415; 71250-TC; 74176-TC; 80053; 81003; 85025; 87086; 93005; 93010; 99285-25